=== PATIENT | female | born 1965 | race Caucasian/White ===

== ENCOUNTER 2018-11-30 16:04 | Inpatient (IN) | payer BC ==
[2018-12-12] MEDS ORDERED: oxyCODONE ER 10 MG TAB.ER PO SCH (06:00)
[2018-12-12] MEDS ORDERED: Pregabalin 25 MG Cap PO SCH (06:00)
[2018-12-12] MEDS ORDERED: Acetaminophen 325 MG Tab PO SCH (06:00)
[2018-12-12] MEDS ORDERED: Sodium Chloride 0.9% 10 ML Syringe FLUSH PRN (07:00)
[2018-12-12] MEDS ORDERED: Lactated Ringers 1,000 ML IV SCH (07:00)
[2018-12-12] MEDS ORDERED: Lidocaine 1%/Sod Bicarbonate in NS 8.4% 1 ML Syringe IDERM PRN (07:00)
[2018-12-12] MEDS ORDERED: Ropivacaine 0.5% 5 MG/ML 30 ML SDV ONE (07:54)
[2018-12-12] MEDS ORDERED: EPINEPHrine 1 MG/ML SDV ONE (07:54)
[2018-12-12] MEDS ORDERED: Scopolamine 1.5 MG Transdermal Patch TOP SCH (10:44)
--- NOTE | 2018-12-12 11:45 | PCM.PREANE ---
Preanesthetic Assessment - Anesthesia/Transfusion/Family Hx Anesthesia History: Prior Anesthesia Reaction Type of Anesthesia Reaction: Excessive Nausea/Vomiting Transfusion History: No Prior Transfusion(s) - Review of Systems General: No Symptoms Pulmonary: No Symptoms, Cough (Nonproductive. History of a viral cold about one month ago. ) Cardiovascular: No Symptoms, Edema (Lower legs when standing a lot. ), Other ( Hypertension) Gastrointestinal: No Symptoms Neurological: No Symptoms Other: Reports: None - Physical Assessment NPO Status Date: 12/11/18 NPO Status Time: 23:59 O2 Sat by Pulse Oximetry: 100 Respiratory Rate: 16 Vital Signs: Last Vital Signs Temp 36.4 C 12/12/18 10:40 Pulse 81 12/12/18 10:40 Resp 16 12/12/18 10:40 BP 138/68 12/12/18 10:40 Pulse Ox 100 12/12/18 10:40 ASA Class: 2 Mental Status: Alert & Oriented x3 Airway Class: Mallampati = 2 Dentition: Reports: Normal Dentition Thyro-Mental Finger Breadths: 3 Mouth Opening Finger Breadths: 3 ROM/Head Extension: Full Lungs: Clear to Auscultation, Normal Respiratory Effort, Decreased Breath Sounds Cardiovascular: Regular Rate, Regular Rhythm - Lab Values: Laboratory Last Values MRSA (PCR) Negative 11/30/18 16:08 - Allergies Allergies/Adverse Reactions: Allergies Allergy/AdvReac Type Severity Reaction Status Date / Time No Known Allergies Allergy Verified 12/09/18 15:10 - Anesthesia Plan Pre-Op Medication Ordered: Other (Scopalamine Patch) - Acknowledgements Anesthesia Type Planned: Spinal, Regional Block Pt an Appropriate Candidate for the Planned Anesthesia: Yes Alternatives and Risks of Anesthesia Discussed w Pt/Guardian: Yes Pt/Guardian Understands and Agrees with Anesthesia Plan: Yes PreAnesthesia Questionnaire HEENT History: Reports: None Cardiovascular History: Reports: High Cholesterol, Hypertension, Other (See Below) Other Cardiovascular History: Peripheral edema Other Respiratory History: Upper respiratory infection Gastrointestinal History: Reports: None Genitourinary History: Reports: None 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 Musculoskeletal History: Reports: Osteoarthritis Other Musculoskeletal History: Bilateral knee pain Neurological History: Reports: None Psychiatric History: Reports: None Endocrine/Metabolic History: Reports: None Hematologic History: Reports: None Immunologic History: Reports: None Oncologic (Cancer) History: Reports: None Dermatologic History: Other Dermatologic History: Acne - Past Surgical History Head Surgeries/Procedures: Reports: None HEENT Surgical History: Reports: Tonsillectomy Cardiovascular Surgical History: Reports: None Respiratory Surgical History: Reports: None GI Surgical History: Reports: Cholecystectomy Female Surgical History: Reports: Hysterectomy Endocrine Surgical History: Reports: None Neurological Surgical History: Reports: None Musculoskeletal Surgical History: Reports: Other (See Below) Other Musculoskeletal Surgeries/Procedures:: Right carpal tunnel release Dermatological Surgical History: Reports: None - SUBSTANCE USE Smoking Status *Q: Former Smoker Tobacco Use Within Last Twelve Months: No Second Hand Smoke Exposure: No Recreational Drug Use History: No - HOME MEDS Home Medications: Home Meds Calcium Carbonate/Vitamin D3 [Calcium 600 + Vit D 400 Softgl] 1 cap PO DAILY 11/05 [History] Multivitamin [Multivitamins] 1 cap PO DAILY 07/22/16 [History] Betamethasone/Clotrimazole [Lotrisone] 1 applic TOP ASDIRECTED 12/09/18 [History ] Biotin 500 mcg PO DAILY 12/09/18 [History] Cetirizine [ZyrTEC] 10 mg PO DAILY 12/09/18 [History] Fish Oil/DHA/EPA [Fish Oil 1,200 MG] 1,200 mg PO DAILY 12/09/18 [History] Fluticasone Propionate [Flonase] 1 spray NS DAILY 12/09/18 [History] Hydrochlorothiazide [Microzide] 12.5 mg PO DAILY 12/09/18 [History] Spironolactone 50 mg PO DAILY 12/09/18 [History] amLODIPine Besylate [Norvasc] 5 mg PO DAILY 12/09/18 [History] - CURRENT (IN HOUSE) MEDS Current Meds: Current Medications Acetaminophen (Tylenol) 975 mg PO ONETIME SANCHEZ Stop: 12/12/18 13:00 Last Admin: 12/12/18 11:15 Dose: 975 mg Aspirin (Ecotrin) 325 mg PO BID SANCHEZ Bisacodyl (Dulcolax) 5 mg PO DAILY PRN PRN Reason: Constipation Morphine Sulfate 8 mg/Epinephrine HCl 0.3 mg/Cefuroxime Sodium 750 mg/Ketorolac Tromethamine 30 mg/Sodium Chloride 27.9 ml 0 mg .XX ONETIME ONE Stop: 12/12/18 13:01 Cyclobenzaprine HCl (Flexeril) 10 mg PO TID PRN PRN Reason: Spasms Docusate Sodium (Colace) 100 mg PO BID [facility] Famotidine (Pepcid) 20 mg PO Q12H [facility] Lactated Ringer's (Ringers, Lactated) 1,000 mls @ 125 mls/hr IV ASDIRECTED [facility] Stop: 12/12/18 23:00 Last Admin: 12/12/18 11:25 Dose: 125 mls/hr Cefazolin Sodium/Dextrose 2 gm (/ Premix) 50 mls @ 100 mls/hr IV Q8H [facility] Stop: 12/12/18 23:29 Ketorolac Tromethamine (Toradol) 15 mg IVPUSH Q6H PRN PRN Reason: Pain Lidocaine/Sodium Bicarbonate (Buffered Lidocaine 1% In Ns 8.4%) 0.25 ml IDERM ONETIME PRN PRN Reason: Prior to IV Start Stop: 12/12/18 18:00 Last Admin: 12/12/18 11:25 Dose: 0.25 ml Magnesium Hydroxide (Milk Of Magnesia) 30 ml PO BID PRN PRN Reason: Constipation Miscellaneous Information (Remove Patch) 0 ea TRDERM ONETIME ONE Stop: 12/15/18 13:01 Morphine Sulfate (Morphine) 2 mg IVPUSH Q2H PRN PRN Reason: Breakthrough Pain Naloxone HCl (Narcan) 0.1 mg IVPUSH Q5M PRN PRN Reason: Oversedation Ondansetron HCl (Zofran) 4 mg IVPUSH Q6H PRN PRN Reason: Nausea/Vomiting Oxycodone HCl (Oxycontin) 10 mg PO ONETIME [facility] Stop: 12/12/18 13:00 Last Admin: 12/12/18 11:15 Dose: 10 mg Oxycodone/Acetaminophen (Percocet 325-5 Mg) 1 - 2 tab PO Q4H PRN PRN Reason: Pain Pregabalin (Lyrica) 50 mg PO ONETIME [facility] Stop: 12/12/18 13:00 Last Admin: 12/12/18 11:15 Dose: 50 mg Scopolamine (Transderm-Scop) 1.5 mg TOP ONETIME [facility] Stop: 12/12/18 13:00 Last Admin: 12/12/18 11:05 Dose: 1.5 mg Senna (Senna) 8.6 mg PO BID PRN PRN Reason: Constipation Sodium Chloride (Saline Flush) 10 ml FLUSH ASDIRECTED PRN PRN Reason: Keep Vein Open Stop: 12/12/18 18:00 Discontinued Medications Epinephrine HCl (Adrenalin) Confirm Administered Dose 1 mg .ROUTE .STK-MED ONE Stop: 12/12/18 07:55 Ropivacaine (Naropin 0.5%) Confirm Administered Dose 30 ml .ROUTE .STK-MED ONE Stop: 12/12/18 07:55
[2018-12-12] MEDS ORDERED: Morphine 2 MG/ML Syringe IVPUSH PRN (12:00)
[2018-12-12] MEDS ORDERED: Magnesium Hydroxide 400 MG/5 ML Susp 30 ML Cup PO PRN (12:00)
[2018-12-12] MEDS ORDERED: Ondansetron 4 MG/2 ML SDV IVPUSH PRN ×2 (12:00→13:36)
[2018-12-12] MEDS ORDERED: Bisacodyl 5 MG Tab PO PRN (12:00)
[2018-12-12] MEDS ORDERED: Cyclobenzaprine 10 MG Tab PO PRN (12:00)
[2018-12-12] MEDS ORDERED: Naloxone 0.4 MG/ML SDV IVPUSH PRN (12:00)
[2018-12-12] MEDS ORDERED: Sennosides 8.6 MG Tab PO PRN (12:00)
[2018-12-12] MEDS ORDERED: fentaNYL 100 MCG/2 ML SDV ONE (12:11)
[2018-12-12] MEDS ORDERED: Propofol 200 MG/20 ML SDV ONE ×3 (12:13→14:23)
[2018-12-12] MEDS ORDERED: Ondansetron 4 MG/2 ML SDV ONE (12:13)
[2018-12-12] MEDS ORDERED: Midazolam 1 MG/ML 2 ML SDV ONE (12:52)
[2018-12-12] MEDS ORDERED: Bupivacaine 0.75% 30 ML SDV ONE (12:56)
[2018-12-12] MEDS ORDERED: ceFAZolin 1 GM Vial ONE (13:16)
[2018-12-12] MEDS ORDERED: fentaNYL 100 MCG/2 ML SDV IVPUSH PRN (13:36)
[2018-12-12] MEDS ORDERED: diphenhydrAMINE 50 MG/ML SDV IVPUSH PRN (13:36)
[2018-12-12] MEDS: Iodine/Sodium Iodide 2% Tincture 30 ML Bottle ONE ×2 (14:00→14:23)
[2018-12-12] MEDS: ceFAZolin 1 GM Vial ONE ×2 (14:00→14:26)
[2018-12-12] MEDS: Bupivacaine 0.25% 30 ML SDV ONE ×4 (14:01→15:00)
[2018-12-12] MEDS: Morphine 8 MG, EPINEPHrine 0.3 MG, Cefuroxime 750 MG, Ketorolac 30 MG, Sodium Chloride ... ONE ×15 (14:02→21:21)
[2018-12-12] MEDS: Vancomycin 1 GM SDV ONE ×2 (14:02→14:32)
[2018-12-12] MEDS: Triamcinolone Acetonide 40 MG/ML 1 ML MDV ONE ×2 (14:05→15:00)
[2018-12-12] MEDS ORDERED: Ketorolac 30 MG/ML SDV ONE (14:07)
[2018-12-12] MEDS ORDERED: Ketamine 500 mg/10 ML MDV ONE (14:11)
[2018-12-12] MEDS ORDERED: Dexamethasone 4 MG/ML 5 ML MDV ONE (14:20)
[2018-12-12] MEDS ORDERED: Albuterol 6.7 GM Inhaler INH ONE (14:26)
[2018-12-12] MEDS ORDERED: Betamethasone Dipropionate/Clotrimazole 0.05-1% Crm 15 GM Tube TOP SCH (15:15)
--- NOTE | 2018-12-12 15:42 | PCM.POSTAN ---
POST ANESTHESIA ASSESSMENT - MENTAL STATUS Mental Status: Alert, Oriented - VITAL SIGNS Pulse Rate: 95 SaO2: 99 Resp Rate: 20 Blood Pressure: 114/57 Temperature: 36.6 C - RESPIRATORY Respiratory Status: Respiratory Rate WNL, Airway Patent, O2 Saturation Stable, Supplemental Oxygen - CARDIOVASCULAR CV Status: Pulse Rate WNL, Blood Pressure Stable - GASTROINTESTINAL GI Status: No Symptoms - PAIN Pain Score: 0 - POST OP HYDRATION Hydration Status: Adequate & Stable
--- NOTE | 2018-12-12 15:53 | PCM.SN ---
- Free Text/Narrative Note: Left selective femoral nerve block at the adductor canal for post-procedure pain control Time Out: 1520 Start: 1524 End: 1530 Chart reviewed. Consent signed. Questions answered. Appropriate monitors applied. Time out performed. Left mid-shaft femur evaluated with ultrasound. Scanning medially femur, I was able to identify the femoral artery in the adductor canal. The saphenous nerve was lateral to the artery. The skin was prepped lateral to the ultrasound probe with chlorahexadine. The 21ga 4 insulated block needle was inserted under direct ultrasound guidance into the adductor canal. 20mL of 0.5% ropivacaine with 1:200,000 epinephrine was injected cirmcumferentially about the nerve with intermittent negative aspiration every 5mL. Patient tolerated the procedure well. See pictures on progress note and vital signs on nurses notes. Block completed postoperatively. Ashly Story ENTRY LEVEL ASSISTANT MANAGER
--- NOTE | 2018-12-12 16:30 | PCM.CONS ---
H&P History of Present Illness - General Date of Service: 12/12/18 Admit Problem/Dx: Admission Diagnosis/Problem Admission Diagnosis/Problem Osteoarthritis of knee Source of Information: Patient, Old Records, Provider, RN, RN Notes Reviewed History Limitations: Reports: No Limitations - History of Present Illness Initial Comments - Free Text/Narative: Luiza Ventura is a 53 yo female patient of Dr. Medrano who is post-operative day 0 of left TKA with right knee cortisone injection. Hospital medicine was consulted for post-operative medical care. At this time she is resting comfortably in bed. Pain is controlled. She denies any chest pain, shortness of breath, palpitations, nausea, or vomiting. She carries a history of: HTN, peripheral edema, Osteoarthritis and acne. She was noted to cough all throughout surgery despite steroid and nebulizer. She is a former smoker. She is a full code. Her primary care provider is Savannah Mcguire NP. Bilateral Knee Pain Score (Numeric/FACES): 5 - Related Data Allergies/Adverse Reactions: Allergies Allergy/AdvReac Type Severity Reaction Status Date / Time No Known Allergies Allergy Verified 12/12/18 16:30 Home Medications: Home Meds Calcium Carbonate/Vitamin D3 [Calcium 600 + Vit D 400 Softgl] 1 cap PO DAILY 11/05 [History] Multivitamin [Multivitamins] 1 cap PO DAILY 07/22/16 [History] Betamethasone/Clotrimazole [Lotrisone] 1 applic TOP ASDIRECTED 12/09/18 [History ] Biotin 500 mcg PO DAILY 12/09/18 [History] Cetirizine [ZyrTEC] 10 mg PO DAILY 12/09/18 [History] Fluticasone Propionate [Flonase] 1 spray NS DAILY 12/09/18 [History] Hydrochlorothiazide [Microzide] 12.5 mg PO DAILY 12/09/18 [History] Spironolactone 50 mg PO DAILY 12/09/18 [History] amLODIPine Besylate [Norvasc] 5 mg PO DAILY 12/09/18 [History] Acetaminophen/oxyCODONE [Percocet 325-5 MG] 1 - 2 tab PO Q6H PRN #60 tablet [Rx] Aspirin [Ecotrin] 325 mg PO BID #84 tab.ec 12/12/18 [Rx] Bisacodyl [Dulcolax] 5 mg PO DAILY PRN tablet 12/12/18 [Rx] Cyclobenzaprine [Flexeril] 10 mg PO TID PRN #40 tablet 12/12/18 [Rx] Docusate Sodium [Colace] 100 mg PO BID cap 12/12/18 [Rx] Famotidine [Pepcid] 20 mg PO Q12H tablet 12/12/18 [Rx] Magnesium Hydroxide [Milk of Magnesia] 30 ml PO BID PRN cup 12/12/18 [Rx] Ondansetron [Zofran ODT] 4 mg PO Q6H PRN #20 tab.dis 12/12/18 [Rx] Sennosides [Senna] 8.6 mg PO BID PRN tablet 12/12/18 [Rx] Past Medical History HEENT History: Reports: None Cardiovascular History: Reports: High Cholesterol, Hypertension, Other (See Below) Other Cardiovascular History: Peripheral edema Other Respiratory History: Upper respiratory infection Gastrointestinal History: Reports: None Genitourinary History: Reports: 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 Musculoskeletal History: Reports: Osteoarthritis Other Musculoskeletal History: Bilateral knee pain Neurological History: Reports: None Psychiatric History: Reports: None Endocrine/Metabolic History: Reports: None Hematologic History: Reports: None Immunologic History: Reports: None Oncologic (Cancer) History: Reports: None Dermatologic History: Other Dermatologic History: Acne - Past Surgical History Head Surgeries/Procedures: Reports: None HEENT Surgical History: Reports: Tonsillectomy Cardiovascular Surgical History: Reports: None Respiratory Surgical History: Reports: None GI Surgical History: Reports: Cholecystectomy Female Surgical History: Reports: Hysterectomy Endocrine Surgical History: Reports: None Neurological Surgical History: Reports: None Musculoskeletal Surgical History: Reports: Other (See Below) Other Musculoskeletal Surgeries/Procedures:: Right carpal tunnel release Dermatological Surgical History: Reports: None Social & Family History - Tobacco Use Smoking Status *Q: Former Smoker Years of Tobacco use: 8 Packs/Tins Daily: 0.5 Used Tobacco, but Quit: Yes Month/Year Tobacco Last Used: 1993 Second Hand Smoke Exposure: No - Caffeine Use Caffeine Use: Reports: Coffee, Soda - Recreational Drug Use Recreational Drug Use: No Drug Use in Last 12 Months: No H&P Review of Systems - Review of Systems: Review Of Systems: See Below General: Reports: No Symptoms. Denies: Fever, Chills, Malaise, Fatigue HEENT: Reports: No Symptoms. Denies: Headaches, Sore Throat Pulmonary: Reports: No Symptoms. Denies: Shortness of Breath, Wheezing, Pleuritic Chest Pain, Cough, Sputum Cardiovascular: Reports: No Symptoms. Denies: Chest Pain, Palpitations, Dyspnea on Exertion, Edema Gastrointestinal: Reports: No Symptoms. Denies: Abdominal Pain, Constipation, Diarrhea, Nausea, Vomiting Genitourinary: Reports: No Symptoms. Denies: Pain Musculoskeletal: Reports: Leg Pain Skin: Reports: No Symptoms. Denies: Cyanosis Psychiatric: Reports: No Symptoms. Denies: Confusion Neurological: Reports: No Symptoms Hematologic/Lymphatic: Reports: No Symptoms Immunologic: Reports: No Symptoms Exam - Exam Exam: See Below - Vital Signs Vital Signs: Last Vital Signs Temp 97.6 F 12/12/18 16:00 Pulse 95 12/12/18 16:00 Resp 19 12/12/18 16:00 BP 123/57 L 12/12/18 16:00 Pulse Ox 94 L 12/12/18 16:00 Weight: 230 lb - Exam Quality Assessment: DVT Prophylaxis General: Alert, Oriented, Cooperative. No: Mild Distress HEENT: Conjunctiva Clear, EACs Clear, EOMI, Hearing Intact, Mucosa Moist & [place] , Posterior Pharynx Clear, PERRLA Neck: Supple, Trachea Midline Lungs: Clear to Auscultation, Normal Respiratory Effort Cardiovascular: Regular Rate, Regular Rhythm GI/Abdominal Exam: Normal Bowel Sounds, Soft, Non-Tender, No Organomegaly, No Distention (Female) Exam: Deferred Rectal (Female) Exam: Deferred Back Exam: Normal Inspection, Full Range of Motion Extremities: Non-Tender, No Pedal Edema, Normal Capillary Refill, Leg Pain, Limited Range of Motion, Other (Bandage in place on left leg. Bandage is dry and intact. Cooling pack in place. ) Peripheral Pulses: 2+: Radial (L), Radial (R), Dorsalis Pedis (L), Dorsalis Pedis (R) Skin: Warm, Dry, Intact Neurological: Cranial Nerves Intact (grossly ) Neuro Extensive - Mental Status: Alert, Oriented x3, Normal Mood/Affect, Normal Cognition Consult PN Assessment/Plan POD#: 0 Procedures: Procedures ARTHROSCOP ROTATOR CUFF REPR (07/23/16) ASSAY OF PREALBUMIN (07/15/18) ASSAY THYROID STIM HORMONE (08/03/18) C-REACTIVE PROTEIN (08/03/18) COMPLETE CBC W/AUTO DIFF WBC (08/03/18) COMPREHEN METABOLIC PANEL (07/15/18) CULTURE SCREEN ONLY (08/03/18) EXTREMITY STUDY (12/26/14) MR-STAPH DNA AMP PROBE (07/23/16) MRI JOINT UPR EXTREM W/O DYE (06/08/16) PROTHROMBIN TIME (07/15/18) ROUTINE VENIPUNCTURE (08/03/18) SHOULDER ARTHROSCOPY/SURGERY (07/23/16) STREP A AG IA (08/03/18) X-RAY EXAM CHEST 2 VIEWS (07/15/18) (1) S/P total knee arthroplasty SNOMED Code(s): 3321710512337, 370269471, 6129953571204 Code(s): Z96.659 - PRESENCE OF UNSPECIFIED ARTIFICIAL KNEE JOINT Priority: High Current Visit: Yes Qualifiers: Laterality: left Qualified Code(s): Z96.652 - Presence of left artificial knee joint (2) HTN (hypertension) SNOMED Code(s): 11308470 Code(s): I10 - ESSENTIAL (PRIMARY) HYPERTENSION Priority: Medium Current Visit: No Qualifiers: Hypertension type: unspecified Qualified Code(s): I10 - Essential (primary ) hypertension (3) HLD (hyperlipidemia) SNOMED Code(s): 27180530 Code(s): E78.5 - HYPERLIPIDEMIA, UNSPECIFIED Priority: Medium Current Visit: No Qualifiers: Hyperlipidemia type: unspecified Qualified Code(s): E78.5 - Hyperlipidemia , unspecified (4) Peripheral edema SNOMED Code(s): 079842065 Code(s): R60.9 - EDEMA, UNSPECIFIED Priority: Low Current Visit: No (5) Osteoarthritis SNOMED Code(s): 883249442 Code(s): M19.90 - UNSPECIFIED OSTEOARTHRITIS, UNSPECIFIED SITE Priority: High Current Visit: Yes Qualifiers: Osteoarthritis location: knee Osteoarthritis type: primary Laterality: bilateral Qualified Code(s): M17.0 - Bilateral primary osteoarthritis of knee Problem List Initiated/Reviewed/Updated: Yes Plan: I/P: Acute: S/P left total knee arthroplasty - post-operative day 0 -DVT prophylaxis and pain management per primary care team -PT/OT -IS/RT -Monitor oxygen saturation -Titrate oxygen as needed -Vital signs stable -Monitor labs -Pre-operative Hgb was 13.9 -Pre-operative GFR was >60 -Per-operative WBC was 10.13 Osteoarthritis of Bilateral knees -Pain management per primary care team S/P right knee cortisone injection -Management per primary team Chronic: HTN HLD Acne Peripheral edema Plan: CM for discharge planning GI prophylaxis Home medications as indicated Other orders as listed above Routine AM labs She is a full code. Her PCP is Savannah Obrien NP Thank you for allowing us to participate in the care of this patient!! Requesting Provider: Dr. Medrano Date Consult Requested: 12/12/18 Reason for Consult: Post-operarive medical managment Patient History Reviewed: Yes Admission H&P Reviewed: Yes Time Spent (in minutes): 40
--- NOTE | 2018-12-12 16:33 | CR ---
Left knee: AP and lateral views left knee were obtained. Comparison: Left knee partially seen on the left tibia and fibula study of 04/05/10. Knee prosthesis is seen. Components are aligned. Underlying bony structures are intact. Soft tissue air is noted from the surgical procedure. Impression: 1. Satisfactory postop radiographic appearance of recently placed left knee prosthesis. Diagnostic code #2
[2018-12-12] MEDS: Ketorolac 15 MG/ML SDV IVPUSH PRN (20:50)
[2018-12-12] MEDS: Famotidine 20 MG Tab PO SCH (20:51)
[2018-12-12] MEDS: Docusate Sodium 100 MG Cap PO SCH (20:51)
[2018-12-12] MEDS: ceFAZolin 2 GM in Premix Bag 1 BAG IV SCH (20:52)
[2018-12-12] MEDS: Acetaminophen/oxyCODONE 325-5 MG Tab PO PRN (21:35)
[2018-12-13] MEDS: ceFAZolin 2 GM in Premix Bag 1 BAG IV SCH ×2 (04:53→11:41)
[2018-12-13] MEDS: Acetaminophen/oxyCODONE 325-5 MG Tab PO PRN ×3 (04:54→14:57)
--- NOTE | 2018-12-13 06:38 | PCM.CONSN ---
- General Info Date of Service: 12/13/18 Admission Dx/Problem (Free Text): Admission Diagnosis/Problem Admission Diagnosis/Problem Osteoarthritis of knee Functional Status: Reports: Pain Controlled, Tolerating Diet, Ambulating, Urinating, Incentive Spirometry. Denies: New Symptoms - Review of Systems General: Reports: No Symptoms. Denies: Fever, Weakness, Fatigue, Chills HEENT: Reports: No Symptoms. Denies: Headaches, Sore Throat Pulmonary: Reports: No Symptoms. Denies: Shortness of Breath, Cough, Sputum, Wheezing Cardiovascular: Reports: No Symptoms. Denies: Chest Pain, Palpitations, Dyspnea on Exertion Gastrointestinal: Reports: No Symptoms. Denies: Abdominal Pain, Constipation, Diarrhea, Nausea, Vomiting Genitourinary: Reports: No Symptoms. Denies: Pain Musculoskeletal: Reports: Leg Pain Skin: Reports: No Symptoms. Denies: Cyanosis Neurological: Reports: No Symptoms. Denies: Confusion Psychiatric: Reports: No Symptoms - Patient Data Vitals - Most Recent: Last Vital Signs Temp 97.5 F 12/13/18 04:53 Pulse 76 12/13/18 04:53 Resp 18 12/13/18 04:53 BP 109/59 L 12/13/18 04:53 Pulse Ox 96 12/13/18 04:53 Weight - Most Recent: 230 lb I&O - Last 24 Hours: Intake & Output 12/12/18 12/12/18 12/13/18 14:59 22:59 06:59 Intake Total 160 400 Output Total 550 Balance 160 -150 Lab Results Last 24 Hours: Laboratory Results - last 24 hr 12/13/18 Range/Units 05:10 WBC 21.99 H (3.98-10.04) K/mm3 RBC 4.33 (3.98-5.22) M/mm3 Hgb 12.5 (11.2-15.7) gm/L Hct 37.7 (34.1-44.9) % MCV 87.1 (79.4-94.8) fl MCH 28.9 (25.6-32.2) pg MCHC 33.2 (32.2-35.5) g/dl RDW Std Deviation 41.0 (36.4-46.3) fL Plt Count 309 (182-369) K/mm3 MPV 11.1 (9.4-12.3) fl Med Orders - Current: Current Medications Amlodipine Besylate (Norvasc) 5 mg PO DAILY [facility] Aspirin (Ecotrin) 325 mg PO BID [facility] Betamethasone/Clotrimazole (Lotrisone) 0 gm TOP ASDIRECTED [facility] Bisacodyl (Dulcolax) 5 mg PO DAILY PRN PRN Reason: Constipation Calcium Carbonate (Calcium Carbonate/Vitamin D 600 Mg-200 Unit) 1 tab PO DAILY [facility] Cyclobenzaprine HCl (Flexeril) 10 mg PO TID PRN PRN Reason: Spasms Docusate Sodium (Colace) 100 mg PO BID [facility] Last Admin: 12/12/18 20:51 Dose: 100 mg Famotidine (Pepcid) 20 mg PO Q12H [facility] Last Admin: 12/12/18 20:51 Dose: 20 mg Fluticasone Propionate (Flonase) 0 gm DENA DAILY [facility] Hydrochlorothiazide (Hydrochlorothiazide) 12.5 mg PO DAILY [facility] Cefazolin Sodium/Dextrose 2 gm (/ Premix) 50 mls @ 100 mls/hr IV Q8H [facility] Stop: 12/13/18 12:29 Last Admin: 12/13/18 04:53 Dose: 100 mls/hr Ketorolac Tromethamine (Toradol) 15 mg IVPUSH Q6H PRN PRN Reason: Pain Last Admin: 12/12/18 20:50 Dose: 15 mg Loratadine (Claritin) 10 mg PO DAILY [facility] Magnesium Hydroxide (Milk Of Magnesia) 30 ml PO BID PRN PRN Reason: Constipation Miscellaneous Information (Remove Patch) 0 ea TRDERM ONETIME ONE Stop: 12/15/18 13:01 Morphine Sulfate (Morphine) 2 mg IVPUSH Q2H PRN PRN Reason: Breakthrough Pain Multivitamins (Thera) 1 each PO DAILY [facility] Naloxone HCl (Narcan) 0.1 mg IVPUSH Q5M PRN PRN Reason: Oversedation Non-Formulary Medication (Biotin [Biotin]) 500 mcg PO DAILY [facility] Ondansetron HCl (Zofran) 4 mg IVPUSH Q6H PRN PRN Reason: Nausea/Vomiting Oxycodone/Acetaminophen (Percocet 325-5 Mg) 1 - 2 tab PO Q4H PRN PRN Reason: Pain Last Admin: 12/13/18 04:54 Dose: 1 tab Senna (Senna) 8.6 mg PO BID PRN PRN Reason: Constipation Spironolactone (Aldactone) 50 mg PO DAILY [facility] Discontinued Medications Acetaminophen (Tylenol) 975 mg PO ONETIME [facility] Stop: 12/12/18 13:00 Last Admin: 12/12/18 11:15 Dose: 975 mg Albuterol (Proventil Hfa) Confirm Administered Dose 6.7 gm INH .STK-MED ONE Stop: 12/12/18 14:27 Bupivacaine HCl (Marcaine 0.25%) Confirm Administered Dose 30 ml .ROUTE .STK- MED ONE Stop: 12/12/18 12:03 Last Admin: 12/12/18 14:28 Dose: 30 ml Bupivacaine HCl (Marcaine 0.25%) Confirm Administered Dose 30 ml .ROUTE .STK- MED ONE Stop: 12/12/18 12:53 Last Admin: 12/12/18 15:00 Dose: 4 ml Bupivacaine HCl (Sensorcaine-Mpf 0.75%) Confirm Administered Dose 30 ml .ROUTE .STK-MED ONE Stop: 12/12/18 12:57 Cefazolin Sodium (Ancef) Confirm Administered Dose 2 gm .ROUTE .STK-MED ONE Stop: 12/12/18 12:03 Last Admin: 12/12/18 14:26 Dose: 2 gm Cefazolin Sodium (Ancef) Confirm Administered Dose 2 gm .ROUTE .STK-MED ONE Stop: 12/12/18 13:17 Morphine Sulfate 8 mg/Epinephrine HCl 0.3 mg/Cefuroxime Sodium 750 mg/Ketorolac Tromethamine 30 mg/Sodium Chloride 27.9 ml 0 mg .XX ONETIME ONE Stop: 12/12/18 13:01 Last Admin: 12/12/18 21:21 Dose: Not Given Dexamethasone (Dexamethasone) Confirm Administered Dose 20 mg .ROUTE .STK-MED ONE Stop: 12/12/18 14:21 Diphenhydramine HCl (Benadryl) 25 mg IVPUSH Q6H PRN PRN Reason: Pruritis Stop: 12/12/18 23:00 Epinephrine HCl (Adrenalin) Confirm Administered Dose 1 mg .ROUTE .STK-MED ONE Stop: 12/12/18 07:55 Fentanyl (Sublimaze) Confirm Administered Dose 100 mcg .ROUTE .STK-MED ONE Stop: 12/12/18 12:12 Fentanyl (Sublimaze) 50 mcg IVPUSH Q5M PRN PRN Reason: Pain Stop: 12/12/18 23:00 Glycopyrrolate () Confirm Administered Dose 1 mg .ROUTE .STK-MED ONE Stop: 12/12/18 14:24 Lactated Ringer's (Ringers, Lactated) 1,000 mls @ 125 mls/hr IV ASDIRECTED [facility] Stop: 12/12/18 23:00 Last Admin: 12/12/18 11:25 Dose: 125 mls/hr Lidocaine HCl (Xylocaine-Mpf 1%) Confirm Administered Dose 5 mls @ as directed .ROUTE .STK-MED ONE Stop: 12/12/18 12:58 Iodine (Iodine 2% Mild Tincture) Confirm Administered Dose 30 ml .ROUTE .STK- MED ONE Stop: 12/12/18 12:03 Last Admin: 12/12/18 14:23 Dose: 18 ml Ketamine HCl (Ketalar) Confirm Administered Dose 500 mg .ROUTE .STK-MED ONE Stop: 12/12/18 14:12 Ketorolac Tromethamine (Toradol) Confirm Administered Dose 30 mg .ROUTE .STK- MED ONE Stop: 12/12/18 14:08 Lidocaine/Sodium Bicarbonate (Buffered Lidocaine 1% In Ns 8.4%) 0.25 ml IDERM ONETIME PRN PRN Reason: Prior to IV Start Stop: 12/12/18 18:00 Last Admin: 12/12/18 11:25 Dose: 0.25 ml Midazolam HCl (Versed 1 Mg/Ml) Confirm Administered Dose 2 mg .ROUTE .STK-MED ONE Stop: 12/12/18 12:53 Ondansetron HCl (Zofran) Confirm Administered Dose 4 mg .ROUTE .STK-MED ONE Stop: 12/12/18 12:14 Ondansetron HCl (Zofran) 4 mg IVPUSH ONETIME PRN PRN Reason: Nausea/Vomiting Stop: 12/12/18 23:00 Oxycodone HCl (Oxycontin) 10 mg PO ONETIME [facility] Stop: 12/12/18 13:00 Last Admin: 12/12/18 11:15 Dose: 10 mg Pregabalin (Lyrica) 50 mg PO ONETIME [facility] Stop: 12/12/18 13:00 Last Admin: 12/12/18 11:15 Dose: 50 mg Propofol (Diprivan 20 Ml) Confirm Administered Dose 200 mg .ROUTE .STK-MED ONE Stop: 12/12/18 12:14 Propofol (Diprivan 20 Ml) Confirm Administered Dose 400 mg .ROUTE .STK-MED ONE Stop: 12/12/18 12:54 Propofol (Diprivan 20 Ml) Confirm Administered Dose 200 mg .ROUTE .STK-MED ONE Stop: 12/12/18 14:24 Ropivacaine (Naropin 0.5%) Confirm Administered Dose 30 ml .ROUTE .STK-MED ONE Stop: 12/12/18 07:55 Scopolamine (Transderm-Scop) 1.5 mg TOP ONETIME [facility] Stop: 12/12/18 13:00 Last Admin: 12/12/18 11:05 Dose: 1.5 mg Sodium Chloride (Saline Flush) 10 ml FLUSH ASDIRECTED PRN PRN Reason: Keep Vein Open Stop: 12/12/18 18:00 Tranexamic Acid (Cyklokapron) Confirm Administered Dose 1,000 mg .ROUTE .STK- MED ONE Stop: 12/12/18 12:03 Last Admin: 12/12/18 14:40 Dose: 1,000 mg Triamcinolone Acetonide (Kenalog-40) Confirm Administered Dose 80 mg .ROUTE .STK -MED ONE Stop: 12/12/18 12:53 Last Admin: 12/12/18 15:00 Dose: 80 mg Vancomycin HCl (Vancomycin) Confirm Administered Dose 1 gm .ROUTE .STK-MED ONE Stop: 12/12/18 12:03 Last Admin: 12/12/18 14:32 Dose: 1 gm - Exam Quality Assessment: DVT Prophylaxis General: Alert, Oriented, Cooperative, No Acute Distress HEENT: Pupils Equal, Pupils Reactive, EOMI, Mucous Membr. Moist/[place] Neck: Supple, Trachea Midline, No JVD Lungs: Clear to Auscultation, Normal Respiratory Effort Cardiovascular: Regular Rate, Regular Rhythm GI/Abdominal Exam: Normal Bowel Sounds, Soft, Non-Tender, No Organomegaly, No Distention (Female) Exam: Deferred Back Exam: Normal Inspection, Full Range of Motion Extremities: No Pedal Edema, Normal Capillary Refill, Leg Pain, Limited Range of Motion, Other (Bandage in place on right leg. Cooling pack in place. ) Peripheral Pulses: 2+: Radial (L), Radial (R), Dorsalis Pedis (L), Dorsalis Pedis (R) Skin: Warm, Dry, Intact Neurological: No New Focal Deficit Psy/Mental Status: Alert, Normal Affect, Normal Mood Consult PN Assessment/Plan POD#: 1 Procedures: Procedures ARTHROSCOP ROTATOR CUFF REPR (07/23/16) ASSAY OF PREALBUMIN (07/15/18) ASSAY THYROID STIM HORMONE (08/03/18) C-REACTIVE PROTEIN (08/03/18) COMPLETE CBC W/AUTO DIFF WBC (08/03/18) COMPREHEN METABOLIC PANEL (07/15/18) CULTURE SCREEN ONLY (08/03/18) EXTREMITY STUDY (12/26/14) MR-STAPH DNA AMP PROBE (07/23/16) MRI JOINT UPR EXTREM W/O DYE (06/08/16) PROTHROMBIN TIME (07/15/18) ROUTINE VENIPUNCTURE (08/03/18) SHOULDER ARTHROSCOPY/SURGERY (07/23/16) STREP A AG IA (08/03/18) X-RAY EXAM CHEST 2 VIEWS (07/15/18) (1) S/P total knee arthroplasty SNOMED Code(s): 7158750112664, 070550875, 3480706973197 Code(s): Z96.659 - PRESENCE OF UNSPECIFIED ARTIFICIAL KNEE JOINT Priority: High Current Visit: Yes Qualifiers: Laterality: left Qualified Code(s): Z96.652 - Presence of left artificial knee joint (2) HTN (hypertension) SNOMED Code(s): 87193070 Code(s): I10 - ESSENTIAL (PRIMARY) HYPERTENSION Priority: Medium Current Visit: No Qualifiers: Hypertension type: unspecified Qualified Code(s): I10 - Essential (primary ) hypertension (3) HLD (hyperlipidemia) SNOMED Code(s): 39106300 Code(s): E78.5 - HYPERLIPIDEMIA, UNSPECIFIED Priority: Medium Current Visit: No Qualifiers: Hyperlipidemia type: unspecified Qualified Code(s): E78.5 - Hyperlipidemia , unspecified (4) Peripheral edema SNOMED Code(s): 527289247 Code(s): R60.9 - EDEMA, UNSPECIFIED Priority: Low Current Visit: No (5) Osteoarthritis SNOMED Code(s): 452665735 Code(s): M19.90 - UNSPECIFIED OSTEOARTHRITIS, UNSPECIFIED SITE Priority: High Current Visit: Yes Qualifiers: Osteoarthritis location: knee Osteoarthritis type: primary Laterality: bilateral Qualified Code(s): M17.0 - Bilateral primary osteoarthritis of knee Problem List Initiated/Reviewed/Updated: Yes Plan: I/P: Acute: S/P left total knee arthroplasty - post-operative day 1 -DVT prophylaxis and pain management per primary care team -PT/OT -IS/RT -Monitor oxygen saturation -Titrate oxygen as needed -Vital signs stable -Monitor labs -Pre-operative Hgb was 14.7; Now 12.5 -Pre-operative Creatinine0.7; Now 1.2-->1.1 -Pre-operative GFR was 93; Now 52-->52 -Per-operative WBC was 9.2; Now 21.99 Osteoarthritis of Bilateral knees -Pain management per primary care team S/P right knee cortisone injection -Management per primary team Leukocytosis -WBC 21.99 (was 10 to 11 prior) -Received steroid injection into right knee as well as multiple inhalation steroids 2/2 coughing during surgery -2 view CXR shows nothing acute -UA negative Acute kidney injury -Likely 2/2 inadequate fluid intake - reports minimal output and input -GFR >60 pre-operative; Now 52-->52 -Creatinine pre-operative ;Now 1.2-->1.1 -BUN preoperative ; Now 17-->17 -IV fluids as ordered Chronic: HTN HLD Acne Peripheral edema Plan: CM for discharge planning GI prophylaxis Home medications as indicated Other orders as listed above Routine AM labs She is a full code. Her PCP is Savannah Mcguire NP Overall from a hospitalist standpoint Luiza is doing pretty well. She has been up ambulatory in working with therapies. She has urinated and is off of oxygen. Vital signs remained stable. Her GFR did decrease from preoperatively quite a bit and her creatinine hal to 1.2. She did receive 1 L of fluid in bolus and then was given IV fluids at a rate of 100 mL an hour thereafter for several hours. She did report she felt quite dry and had not urinated very much. She reports intake yesterday and prior to surgery was very minimal. Did instruct to push fluids. Repeat BMP showed slightly improved creatinine however GFR remain the same. She does have a follow-up appointment scheduled with her PCP. Advised her of signs to watch for's showing renal failure such as brown or tea-colored urine, difficulty urinating, no urination, etc. White count was quite high today at 22. UA and chest x-ray were obtained with no signs of infection. She denies any infectious symptoms. It was noted she coughed frequently throughout the surgery and was given significant amounts of inhalation steroids. She also received a knee steroid injection. This may be why her white count was so elevated. Advised her and her of signs of infection and to seek medical care immediately should symptoms develop. Encouraged continued IS usage. Otherwise she has no concerns. No nursing concerns. She will be cleared for discharge pending primary team and PT/OT approval. Thank you for allowing us to participate in the care of this patient!!
[2018-12-13] MEDS: Docusate Sodium 100 MG Cap PO SCH (08:04)
[2018-12-13] MEDS: Famotidine 20 MG Tab PO SCH (08:04)
[2018-12-13] MEDS: Ketorolac 15 MG/ML SDV IVPUSH PRN (08:05)
[2018-12-13] MEDS ORDERED: Sodium Chloride 0.9% 1,000 ML IV SCH ×2 (08:15→09:45)
--- NOTE | 2018-12-13 08:39 | PCM48HPAN ---
Post Anesthesia Note - EVALUATION WITHIN 48HRS OF ANESTHETIC Vital Signs in Normal Range: Yes Patient Participated in Evaluation: Yes Respiratory Function Stable: Yes Airway Patent: Yes Cardiovascular Function Stable: Yes Hydration Status Stable: Yes Pain Control Satisfactory: Yes Nausea and Vomiting Control Satisfactory: Yes Mental Status Recovered: Yes
[2018-12-13] MEDS ORDERED: Calcium Carbonate/Vitamin D3 600 MG-200 Units Tab PO SCH (09:00)
[2018-12-13] MEDS ORDERED: Spironolactone 25 MG Tab PO SCH (09:00)
[2018-12-13] MEDS ORDERED: Fluticasone Propionate Nasal Spray 16 GM Bottle NAS SCH (09:00)
[2018-12-13] MEDS ORDERED: Hydrochlorothiazide 12.5 MG Cap PO SCH (09:00)
[2018-12-13] MEDS ORDERED: Aspirin 325 MG Tab.EC PO SCH (09:00)
[2018-12-13] MEDS ORDERED: Multivitamins,Therapeutic Tab PO SCH (09:00)
[2018-12-13] MEDS ORDERED: amLODIPine 5 MG Tab PO SCH (09:00)
[2018-12-13] MEDS ORDERED: Loratadine 10 MG Tab PO SCH (09:00)
[2018-12-13] MEDS ORDERED: BIOTIN 500 MCG PO SCH (09:00)
--- NOTE | 2018-12-13 09:01 | CR ---
Chest: Two views of the chest were obtained. Comparison: Prior chest x-ray of 07/15/18. Heart size and mediastinum are within normal limits. Lungs are clear. Bony structures are unremarkable. Surgical clips are seen within the upper abdomen. Impression: 1. Nothing acute is seen on two-view chest x-ray. Diagnostic code #2
[2018-12-13 11:55] VITALS: BP 130/53
--- NOTE | 2018-12-14 18:21 | PCM.DCSUM1 ---
Discharge Summary - Hospital Course Brief History: Luiza is a 53 yo female who underwent left TKA with right knee cortisone injection with Dr. Medrano on 12-12-2018. The procedure was completed under spinal anesthesia with sedation. The pt tolerated the procedure well and was admitted to the Medical-Surgical Unit. Medical management was provided by the Hospitalist service. The pt's Hospital course was remarkable for a cough that was evaluated by the Hospitalist service. The pt's Hgb on POD#1 was 12.5. On POD#1, 325mg ASA BID was initiated for VTE prophylaxis. SCDs and TEDs were also ordered. A Mepilex dressing was placed at the incision site at the time of surgery and remained clean and dry. The pt participated in P.T. and O.T. and progressed well. The pt was allowed to WBAT and used a FWW for mobility. On POD#1, the pt was deemed appropriate to discharge to home with her family. Diagnosis: Stroke: No - Discharge Data Discharge Date: 12/13/18 Discharge Disposition: Home, Self-Care 01 Condition: Good - Patient Summary/Data Consults: Consultations 12/12/18 06:55 OT Evaluation and Treatment [CONS] Routine PT Evaluation and Treatment [CONS] Routine 12/12/18 15:38 Consult to Physician [CONS] Routine 12/12/18 16:50 Consult to Physician [CONS] Routine - Patient Instructions Diet: Usual Diet as Tolerated Activity: Apply Ice, As Tolerated, Elevate Extremity, Full Weight Bearing Driving: Do Not Drive Showering/Bathing: May Shower Wound/Incision Care: Keep Operative Site/Wound Site Clean and Dry, Do NOT Change Dressing Notify Provider of: Fever, Increased Pain, Swelling and Redness, Drainage, Nausea and/or Vomiting Other/Special Instructions: Please get up and moving around EVERY HOUR while awake. Take a short walk every hour while awake. This helps to prevent blood clots. Have help with mobility as needed. Please take 325mg aspirin twice daily - this also helps to prevent blood clots. The medication is being used for blood clot prevention and not for pain control, so please use the medication twice daily as directed. You could use a medication like Zantac or Pepcid and a medication like omeprazole (Prilosec) or Nexium to protect your stomach while using the aspirin. Please wear the JERRY hose during the day and you may remove them at night. Please schedule for P.T. Complete the P.T. exercises and stretches that were instructed in the Hospital. Please use the pain medication as needed. The medication may cause drowsiness and/or constipation. You could use a stool softener like docusate sodium or Colace 100mg twice daily and/or a laxative like Miralax daily for constipation. Contact your primary care provider for further instructions if you are constipated. Discontinue use of the pain medication as soon as able. Please do not use other medications that may cause drowsiness (other pain medications, anxiety pills, sleeping pills, allergy medications that cause drowsiness) while using the pain medication. Please do not use alcohol while using the pain medication. Use the incentive spirometer often. Please place ice to the surgical site often. Place a towel between your skin and the blue pad. Please elevate the limb to decrease swelling. Keep the dressing in place until follow- up. Please notify the Clinic if the dressing is saturated or rolls. Increase protein intake in your diet as this helps with healing. If you are a diabetic, please closely monitor your blood sugars and notify your primary care provider of your values. Elevated blood sugars increases the risk of infection. Please call [phone] with questions or concerns. - Discharge Plan *PRESCRIPTION DRUG MONITORING PROGRAM REVIEWED*: No *COPY OF PRESCRIPTION DRUG MONITORING REPORT IN PATIENT NEGAR: No Prescriptions/Med Rec: Acetaminophen/oxyCODONE [Percocet 325-5 MG] 1 - 2 tab PO Q6H PRN #60 tablet PRN Reason: Pain Aspirin [Ecotrin] 325 mg PO BID #84 tab.ec Cyclobenzaprine [Flexeril] 10 mg PO TID PRN #40 tablet PRN Reason: Spasms Ondansetron [Zofran ODT] 4 mg PO Q6H PRN #20 tab.dis PRN Reason: Nausea Home Medications: Home Meds Calcium Carbonate/Vitamin D3 [Calcium 600 + Vit D 400 Softgl] 1 cap PO DAILY 11/05 [History] Multivitamin [Multivitamins] 1 cap PO DAILY 07/22/16 [History] Betamethasone/Clotrimazole [Lotrisone] 1 applic TOP ASDIRECTED 12/09/18 [History ] Biotin 500 mcg PO DAILY 12/09/18 [History] Cetirizine [ZyrTEC] 10 mg PO DAILY 12/09/18 [History] Fluticasone Propionate [Flonase] 1 spray NS DAILY 12/09/18 [History] Hydrochlorothiazide [Microzide] 12.5 mg PO DAILY 12/09/18 [History] Spironolactone 50 mg PO DAILY 12/09/18 [History] amLODIPine Besylate [Norvasc] 5 mg PO DAILY 12/09/18 [History] Acetaminophen/oxyCODONE [Percocet 325-5 MG] 1 - 2 tab PO Q6H PRN #60 tablet [Rx] Aspirin [Ecotrin] 325 mg PO BID #84 tab.ec 12/12/18 [Rx] Bisacodyl [Dulcolax] 5 mg PO DAILY PRN tablet 12/12/18 [Rx] Cyclobenzaprine [Flexeril] 10 mg PO TID PRN #40 tablet 12/12/18 [Rx] Docusate Sodium [Colace] 100 mg PO BID cap 12/12/18 [Rx] Famotidine [Pepcid] 20 mg PO Q12H tablet 12/12/18 [Rx] Magnesium Hydroxide [Milk of Magnesia] 30 ml PO BID PRN cup 12/12/18 [Rx] Ondansetron [Zofran ODT] 4 mg PO Q6H PRN #20 tab.dis 12/12/18 [Rx] Sennosides [Senna] 8.6 mg PO BID PRN tablet 12/12/18 [Rx] Referrals: Elyse Lui PA-C [Physician Buttonhole Machine Operator] - 12/20/18 10:30 am (Follow up with Elyse Lui on 12/20/18 at 1030 a.m. and 12/27/18 at 1030 a.m.) Savannah Mcguire NP [Primary Care Provider] - 12/23/18 10:00 am (You have an appointment with Savannah on this day if gretta, you can cancel if you would like. The time is 1000 mountain time or 1100 central time. ) - Discharge Summary/Plan Comment DC Time >30 min.: No - Patient Data Vitals - Most Recent: Last Vital Signs Temp 97.0 F 12/13/18 07:35 Pulse 58 L 12/13/18 11:47 Resp 16 12/13/18 11:47 BP 130/53 L 12/13/18 11:47 Pulse Ox 98 12/13/18 11:47 Weight - Most Recent: 230 lb Med Orders - Current: Current Medications Discontinued Medications Acetaminophen (Tylenol) 975 mg PO ONETIME [facility] Stop: 12/12/18 13:00 Last Admin: 12/12/18 11:15 Dose: 975 mg Albuterol (Proventil Hfa) Confirm Administered Dose 6.7 gm INH .STK-MED ONE Stop: 12/12/18 14:27 Amlodipine Besylate (Norvasc) 5 mg PO DAILY [facility] Last Admin: 12/13/18 08:04 Dose: 5 mg Aspirin (Ecotrin) 325 mg PO BID [facility] Last Admin: 12/13/18 08:04 Dose: 325 mg Betamethasone/Clotrimazole (Lotrisone) 0 gm TOP ASDIRECTED [facility] Bisacodyl (Dulcolax) 5 mg PO DAILY PRN PRN Reason: Constipation Bupivacaine HCl (Marcaine 0.25%) Confirm Administered Dose 30 ml .ROUTE .STK- MED ONE Stop: 12/12/18 12:03 Last Admin: 12/12/18 14:28 Dose: 30 ml Bupivacaine HCl (Marcaine 0.25%) Confirm Administered Dose 30 ml .ROUTE .STK- MED ONE Stop: 12/12/18 12:53 Last Admin: 12/12/18 15:00 Dose: 4 ml Bupivacaine HCl (Sensorcaine-Mpf 0.75%) Confirm Administered Dose 30 ml .ROUTE .STK-MED ONE Stop: 12/12/18 12:57 Calcium Carbonate (Calcium Carbonate/Vitamin D 600 Mg-200 Unit) 1 tab PO DAILY [facility] Last Admin: 12/13/18 08:04 Dose: 1 tab Cefazolin Sodium (Ancef) Confirm Administered Dose 2 gm .ROUTE .STK-MED ONE Stop: 12/12/18 12:03 Last Admin: 12/12/18 14:26 Dose: 2 gm Cefazolin Sodium (Ancef) Confirm Administered Dose 2 gm .ROUTE .STK-MED ONE Stop: 12/12/18 13:17 Morphine Sulfate 8 mg/Epinephrine HCl 0.3 mg/Cefuroxime Sodium 750 mg/Ketorolac Tromethamine 30 mg/Sodium Chloride 27.9 ml 0 mg .XX ONETIME ONE Stop: 12/12/18 13:01 Last Admin: 12/12/18 21:21 Dose: Not Given Cyclobenzaprine HCl (Flexeril) 10 mg PO TID PRN PRN Reason: Spasms Dexamethasone (Dexamethasone) Confirm Administered Dose 20 mg .ROUTE .STK-MED ONE Stop: 12/12/18 14:21 Diphenhydramine HCl (Benadryl) 25 mg IVPUSH Q6H PRN PRN Reason: Pruritis Stop: 12/12/18 23:00 Docusate Sodium (Colace) 100 mg PO BID [facility] Last Admin: 12/13/18 08:04 Dose: 100 mg Epinephrine HCl (Adrenalin) Confirm Administered Dose 1 mg .ROUTE .STK-MED ONE Stop: 12/12/18 07:55 Famotidine (Pepcid) 20 mg PO Q12H [facility] Last Admin: 12/13/18 08:04 Dose: 20 mg Fentanyl (Sublimaze) Confirm Administered Dose 100 mcg .ROUTE .STK-MED ONE Stop: 12/12/18 12:12 Fentanyl (Sublimaze) 50 mcg IVPUSH Q5M PRN PRN Reason: Pain Stop: 12/12/18 23:00 Flunisolide (Nasalide Nasal [place]) 0 ml DENA BID [facility] Last Admin: 12/13/18 08:05 Dose: Not Given Fluticasone Propionate (Flonase) 0 gm DENA DAILY [facility] Glycopyrrolate () Confirm Administered Dose 1 mg .ROUTE .STK-MED ONE Stop: 12/12/18 14:24 Hydrochlorothiazide (Hydrochlorothiazide) 12.5 mg PO DAILY [facility] Last Admin: 12/13/18 08:04 Dose: 12.5 mg Lactated Ringer's (Ringers, Lactated) 1,000 mls @ 125 mls/hr IV ASDIRECTED [facility] Stop: 12/12/18 23:00 Last Admin: 12/12/18 11:25 Dose: 125 mls/hr Cefazolin Sodium/Dextrose 2 gm (/ Premix) 50 mls @ 100 mls/hr IV Q8H [facility] Stop: 12/13/18 12:29 Last Admin: 12/13/18 11:41 Dose: 100 mls/hr Lidocaine HCl (Xylocaine-Mpf 1%) Confirm Administered Dose 5 mls @ as directed .ROUTE .STK-MED ONE Stop: 12/12/18 12:58 Sodium Chloride (Normal Saline) 1,000 mls @ 999 mls/hr IV ASDIRECTED [facility] Last Admin: 12/13/18 08:25 Dose: 999 mls/hr Sodium Chloride (Normal Saline) 1,000 mls @ 100 mls/hr IV ASDIRECTED [facility] Last Admin: 12/13/18 10:07 Dose: 100 mls/hr Iodine (Iodine 2% Mild Tincture) Confirm Administered Dose 30 ml .ROUTE .STK- MED ONE Stop: 12/12/18 12:03 Last Admin: 12/12/18 14:23 Dose: 18 ml Ketamine HCl (Ketalar) Confirm Administered Dose 500 mg .ROUTE .STK-MED ONE Stop: 12/12/18 14:12 Ketorolac Tromethamine (Toradol) 15 mg IVPUSH Q6H PRN PRN Reason: Pain Last Admin: 12/13/18 08:05 Dose: 15 mg Ketorolac Tromethamine (Toradol) Confirm Administered Dose 30 mg .ROUTE .STK- MED ONE Stop: 12/12/18 14:08 Lidocaine/Sodium Bicarbonate (Buffered Lidocaine 1% In Ns 8.4%) 0.25 ml IDERM ONETIME PRN PRN Reason: Prior to IV Start Stop: 12/12/18 18:00 Last Admin: 12/12/18 11:25 Dose: 0.25 ml Loratadine (Claritin) 10 mg PO DAILY [facility] Last Admin: 12/13/18 08:04 Dose: 10 mg Magnesium Hydroxide (Milk Of Magnesia) 30 ml PO BID PRN PRN Reason: Constipation Midazolam HCl (Versed 1 Mg/Ml) Confirm Administered Dose 2 mg .ROUTE .STK-MED ONE Stop: 12/12/18 12:53 Miscellaneous Information (Remove Patch) 0 ea TRDERM ONETIME ONE Stop: 12/15/18 13:01 Morphine Sulfate (Morphine) 2 mg IVPUSH Q2H PRN PRN Reason: Breakthrough Pain Multivitamins (Thera) 1 each PO DAILY [facility] Last Admin: 12/13/18 08:04 Dose: 1 each Naloxone HCl (Narcan) 0.1 mg IVPUSH Q5M PRN PRN Reason: Oversedation Non-Formulary Medication (Biotin [Biotin]) 500 mcg PO DAILY [facility] Ondansetron HCl (Zofran) 4 mg IVPUSH Q6H PRN PRN Reason: Nausea/Vomiting Ondansetron HCl (Zofran) Confirm Administered Dose 4 mg .ROUTE .STK-MED ONE Stop: 12/12/18 12:14 Ondansetron HCl (Zofran) 4 mg IVPUSH ONETIME PRN PRN Reason: Nausea/Vomiting Stop: 12/12/18 23:00 Oxycodone HCl (Oxycontin) 10 mg PO ONETIME [facility] Stop: 12/12/18 13:00 Last Admin: 12/12/18 11:15 Dose: 10 mg Oxycodone/Acetaminophen (Percocet 325-5 Mg) 1 - 2 tab PO Q4H PRN PRN Reason: Pain Last Admin: 12/13/18 14:57 Dose: 2 tab Pregabalin (Lyrica) 50 mg PO ONETIME [facility] Stop: 12/12/18 13:00 Last Admin: 12/12/18 11:15 Dose: 50 mg Propofol (Diprivan 20 Ml) Confirm Administered Dose 200 mg .ROUTE .STK-MED ONE Stop: 12/12/18 12:14 Propofol (Diprivan 20 Ml) Confirm Administered Dose 400 mg .ROUTE .STK-MED ONE Stop: 12/12/18 12:54 Propofol (Diprivan 20 Ml) Confirm Administered Dose 200 mg .ROUTE .STK-MED ONE Stop: 12/12/18 14:24 Ropivacaine (Naropin 0.5%) Confirm Administered Dose 30 ml .ROUTE .STK-MED ONE Stop: 12/12/18 07:55 Scopolamine (Transderm-Scop) 1.5 mg TOP ONETIME [facility] Stop: 12/12/18 13:00 Last Admin: 12/12/18 11:05 Dose: 1.5 mg Senna (Senna) 8.6 mg PO BID PRN PRN Reason: Constipation Sodium Chloride (Saline Flush) 10 ml FLUSH ASDIRECTED PRN PRN Reason: Keep Vein Open Stop: 12/12/18 18:00 Spironolactone (Aldactone) 50 mg PO DAILY [facility] Last Admin: 12/13/18 08:04 Dose: 50 mg Tranexamic Acid (Cyklokapron) Confirm Administered Dose 1,000 mg .ROUTE .STK- MED ONE Stop: 12/12/18 12:03 Last Admin: 12/12/18 14:40 Dose: 1,000 mg Triamcinolone Acetonide (Kenalog-40) Confirm Administered Dose 80 mg .ROUTE .STK -MED ONE Stop: 12/12/18 12:53 Last Admin: 12/12/18 15:00 Dose: 80 mg Vancomycin HCl (Vancomycin) Confirm Administered Dose 1 gm .ROUTE .STK-MED ONE Stop: 12/12/18 12:03 Last Admin: 12/12/18 14:32 Dose: 1 gm
--- NOTE | 2018-12-15 09:51 | PCM.OPNOTE ---
- General Post-Op/Procedure Note Date of Surgery/Procedure: 12/12/18 Operative Procedure(s): left total knee with right knee corticosteroid injection Pre Op Diagnosis: bilateral knee osteoarthrosis Post-Op Diagnosis: Same Anesthesia Technique: Local, MAC, Spinal Primary Surgeon: Hema Medrano Anesthesia Provider: Radha Story Bleach Range Operator: Elyse Lui Bleach Range Operator: Brunilda Casas EBL in mLs: 350 Complications: None Condition: Good Free Text/Narrative:: size 5/5 9mm 29x9
--- NOTE | 2018-12-16 07:30 | OR ---
DATE OF OPERATION: 12/12/2018 SURGEON: Hema Medrano MD OPERATION PERFORMED: Left total knee arthroplasty with right knee corticosteroid injection. PREOPERATIVE DIAGNOSIS: Bilateral knee osteoarthrosis. POSTOPERATIVE DIAGNOSIS: Bilateral knee osteoarthrosis. ANESTHESIA: Local MAC with spinal. ANESTHESIA PROVIDER: Candace Trammell. DIRECTOR CONSUMER AFFAIRS: Elyse Lui PA-C and Brunilda Casas LPN. ESTIMATED BLOOD LOSS: 350 mL. COMPLICATIONS: None. CONDITION: Stable. IMPLANTS: 1. Mirna size 5 press-fit CR femur. 2. [place] size 5 press-fit tibial base plate. 3. [place] size 5, 9 mm CS polyethylene insert. 4. Mirna size 29 x 9 mm press-fit patella. DESCRIPTION OF PROCEDURE: The patient was identified in the preop holding area. Proper site was marked and identified by the surgeon. The patient was taken back to the operating theater. After adequate anesthesia, the patient's left lower extremity had a nonsterile tourniquet applied and it was sterilely prepped and draped in the usual sterile fashion. OR time-out was performed. The patient received 2 g IV Ancef. At this time, the left lower extremity was exsanguinated. Tourniquet was insufflated to 300 mmHg. Standard medial parapatellar incision was made. Medial parapatellar arthrotomy was created. Deep fibers of the MCL were raised and anterior fat pad was resected. At this time, attention was turned to the patella. Patella measured a 21, it was resected to a 13 for 29 x 9 mm patella. Drill holes were then drilled and found to be in adequate position. The drill was then drilled in the distal femur and the intramedullary distal femoral cutting guide was then placed. 8 mm was resected off the distal femur and was found to be an adequate resection. Sizing guide was placed. It was found to be a size 5 press-fit CR femur that was shown on the implant record at the beginning of this dictation. The drill holes were drilled for the epicondylar axis using [place] line and epicondyles as reference. At this time, the 4-in-1 cutting block was placed. An anterior posterior and anterior and posterior chamfer cuts were then completed. Attention was turned to the tibia. The posterior medial lateral retractors were placed. The extramedullary tibial guide was placed. It was placed in the old footprint of the ACL. It was aligned with the center of the ankle and 0 degrees of slope, 9 mm was then resected off the unaffected side. There was found to be an acceptable reduction. At this time, posterior osteophytes were removed along with medial and lateral meniscus. A trial implant was placed with a correct sized tibia that was mentioned at the beginning of the dictation. A Mirna size 5, 9 mm CS polyethylene insert was then placed. The patient's knee was brought through range of motion. The patella was tracking centrally and was stable to varus and valgus stress. Alignment was found to be roughly at 0 degrees. The tibia was stamped and drilled in proper rotation. The universal tibial base plate was impacted in place. Next, the [place] size 5 press-fit CR femur impacted into place and the Mirna size 5, 9 mm CS polyethylene insert was placed. The patient's knee was brought into full extension. The patella was then press-fit in place at this time. Tourniquet was deflated. One liter dilute Betadine solution was irrigated through the knee along with 3 L of pulse lavage irrigation with Ancef. Periarticular injection was then completed. The patient's knee was brought through a range of motion. Once the cement had time to set up and it was found to be stable to varus valgus stress, the patella was tracking centrally with full range of motion. At this time, a #2 barbed suture was used for closure of the medial parapatellar arthrotomy. Topical tranexamic acid was placed. 2-0 Vicryl was used subcutaneously, Prineo was used for the skin. The patient tolerated the procedure well and was sent to the PACU in stable condition. After this was completed, under sterile technique, 2 mL of 40 mg Kenalog and 4 mL of 0.25% Marcaine were injected to the right knee. ANNEL /[id number] KIRAN
== END 2018-12-13 15:00 | disposition home or self-care (01) | DRG 302 ==
LOC: JD.LAB 16:04 → EDSTATUS 12-01 15:20 → JD.MS 12-12 10:22 → EDSTATUS 12-12 12:45 → JD.MS 12-12 14:21
PROVIDERS: ADMIT Orthopaedic Surgery; ATTEND Orthopaedic Surgery
PROC: 3E0U33Z Introduction of Anti-inflammatory into Joints, Percutaneous Approach (ICD-10-PCS; principal; 2018-12-12)
PROC: 0SRD0JA Replacement of Left Knee Joint with Synthetic Substitute, Uncemented, Open Approach (ICD-10-PCS; principal; 2018-12-12)
PROC: 3E0U3BZ Introduction of Anesthetic Agent into Joints, Percutaneous Approach (ICD-10-PCS; principal; 2018-12-12)
PROC: 3E0T3BZ Introduction of Anesthetic Agent into Peripheral Nerves and Plexi, Percutaneous Approach (ICD-10-PCS; 2018-12-12)
DX: M17.0 Bilateral primary osteoarthritis of knee (principal); N17.9 Acute kidney failure, unspecified; D72.829 Elevated white blood cell count, unspecified; G89.18 Other acute postprocedural pain; M25.762 Osteophyte, left knee; I10 Essential (primary) hypertension; E78.5 Hyperlipidemia, unspecified; R60.0 Localized edema; E78.00 Pure hypercholesterolemia, unspecified; Z87.891 Personal history of nicotine dependence; Z90.49 Acquired absence of other specified parts of digestive tract; Z79.899 Other long term (current) drug therapy; Z90.710 Acquired absence of both cervix and uterus
CPT/HCPCS: 01402; 36415; 64450; 71046; 71046-26; 73560-26-LT; 73560-LT; 80048; 80053; 81001; 85027; 87641; 97110-GP; 97116-GP; 97161-GP; 97165-GO; 97535-GO; A9270-GY; C1776; J0171; J0690; J0697; J1100; J1885; J2001; J2250; J2270; J2405; J2704; J2795; J3010; J3301; J3370; J3490; J7040; J7120

== ENCOUNTER 2019-06-26 06:07 | Inpatient (IN) | payer BC ==
[~2019-06-26 06:07] MED LIST: Acetaminophen 325 MG Tab PO SCH; Lactated Ringers 1,000 ML IV SCH; Lidocaine 1%/Sod Bicarbonate in NS 8.4% 1 ML Syringe IDERM PRN; Pregabalin 25 MG Cap PO SCH; Scopolamine 1.5 MG Transdermal Patch TOP SCH; Sodium Chloride 0.9% 10 ML Syringe FLUSH PRN; oxyCODONE ER 10 MG TAB.ER PO SCH
[2019-06-26] MEDS ORDERED: Albuterol 0.083% 2.5 MG/3 ML Neb Soln NEB SCH (06:45)
[2019-06-26] MEDS ORDERED: Ropivacaine 0.5% 5 MG/ML 30 ML SDV ONE (06:49)
[2019-06-26] MEDS ORDERED: EPINEPHrine 1 MG/1 ML Amp ONE (06:49)
[2019-06-26] MEDS ORDERED: Midazolam 1 MG/ML 2 ML SDV ONE ×3 (06:53→07:45)
[2019-06-26] MEDS ORDERED: fentaNYL 100 MCG/2 ML SDV ONE (06:53)
[2019-06-26] MEDS ORDERED: Dexamethasone 4 MG/ML 5 ML MDV ONE (06:53)
[2019-06-26] MEDS ORDERED: Propofol 200 MG/20 ML SDV ONE (06:53)
[2019-06-26] MEDS ORDERED: Ondansetron 4 MG/2 ML SDV ONE (06:53)
[2019-06-26] MEDS ORDERED: ceFAZolin 1 GM Vial ONE (06:53)
[2019-06-26] MEDS ORDERED: Lidocaine 1% 4 ML ONE (06:53)
[2019-06-26] MEDS ORDERED: Ketamine 500 mg/10 ML MDV ONE (06:53)
[2019-06-26] MEDS ORDERED: Ketorolac 30 MG/ML SDV ONE (06:53)
[2019-06-26] MEDS ORDERED: diphenhydrAMINE 50 MG/ML SDV ONE (07:36)
[2019-06-26] MEDS: Morphine 8 MG, EPINEPHrine 0.3 MG, Cefuroxime 750 MG, Ketorolac 30 MG, Sodium Chloride ... ONE ×15 (07:51→22:19)
[2019-06-26] MEDS: Iodine/Sodium Iodide 2% Tincture 30 ML Bottle ONE ×2 (07:51→08:14)
[2019-06-26] MEDS: ceFAZolin 1 GM Vial ONE ×2 (07:51→08:17)
[2019-06-26] MEDS: Bupivacaine 0.25% 10 ML SDV ONE ×2 (07:52→08:22)
[2019-06-26] MEDS: Vancomycin 1 GM SDV ONE ×2 (07:53→08:24)
--- NOTE | 2019-06-26 08:04 | PCM.PREANE ---
Preanesthetic Assessment - Anesthesia/Transfusion/Family Hx Anesthesia History: Prior Anesthesia Reaction Type of Anesthesia Reaction: Excessive Nausea/Vomiting Family History of Anesthesia Reaction: No Transfusion History: No Prior Transfusion(s) - Review of Systems General: No Symptoms Pulmonary: Cough (Chronic cough, improving, no inhaler use for 2 weeks. Dry cough noted during preop interview. ) Cardiovascular: No Symptoms Gastrointestinal: No Symptoms Neurological: No Symptoms Other: Reports: None - Physical Assessment NPO Status Date: 06/25/19 NPO Status Time: 22:00 Vital Signs: Last Vital Signs Temp 36.2 C 06/26/19 06:15 Pulse 71 06/26/19 06:15 Resp 16 06/26/19 06:15 BP 128/71 06/26/19 06:15 Pulse Ox 98 06/26/19 06:57 Height: 1.65 m Weight: 99.79 kg ASA Class: 2 Mental Status: Alert & Oriented x3 Airway Class: Mallampati = 2 Dentition: Reports: Normal Dentition Thyro-Mental Finger Breadths: 2 Mouth Opening Finger Breadths: 3 ROM/Head Extension: Full Lungs: Clear to Auscultation, Normal Respiratory Effort, Decreased Breath Sounds Cardiovascular: Regular Rate, Regular Rhythm - Lab Values: Laboratory Last Values MRSA (PCR) Negative 06/06/19 10:58 - Imaging/EKG Impressions: SR at 61bpm - Allergies Allergies/Adverse Reactions: Allergies Allergy/AdvReac Type Severity Reaction Status Date / Time No Known Allergies Allergy Verified 06/25/19 17:56 - Acknowledgements Anesthesia Type Planned: Spinal, Regional Block (Post Op adductor block) Pt an Appropriate Candidate for the Planned Anesthesia: Yes Alternatives and Risks of Anesthesia Discussed w Pt/Guardian: Yes Pt/Guardian Understands and Agrees with Anesthesia Plan: Yes Additional Comments: Luiza has had a cough for the last couple months. The cough started with a cold and has improved. Chest Xray done for preop was normal. Neb treatment ordered. Previous anesthetic noted coughing/wheezing during the procedure. Luiza is agreeable to a spinal anesthetic with light MAC to help with her coughing. Scopalamine patch ordered for PONV prophylaxis. PreAnesthesia Questionnaire HEENT History: Reports: Impaired Vision Other HEENT History: wears glasses Cardiovascular History: Reports: High Cholesterol, Hypertension, Other (See Below) Other Cardiovascular History: Peripheral edema Other Respiratory History: Upper respiratory infection Gastrointestinal History: Reports: None Genitourinary History: Reports: None [employer] History: Reports: None Musculoskeletal History: Reports: Osteoarthritis Other Musculoskeletal History: Bilateral knee pain Neurological History: Reports: None Psychiatric History: Reports: None Endocrine/Metabolic History: Reports: None Hematologic History: Reports: None Immunologic History: Reports: None Oncologic (Cancer) History: Reports: None Dermatologic History: Other Dermatologic History: Acne - Past Surgical History Head Surgeries/Procedures: Reports: None HEENT Surgical History: Reports: Tonsillectomy Cardiovascular Surgical History: Reports: None Respiratory Surgical History: Reports: None GI Surgical History: Reports: Cholecystectomy, EGD Female Surgical History: Reports: Hysterectomy Other Female Surgeries/Procedures: partial hysterectomy Endocrine Surgical History: Reports: None Neurological Surgical History: Reports: None Musculoskeletal Surgical History: Reports: Carpal Tunnel, Knee Replacement, Other (See Below) Other Musculoskeletal Surgeries/Procedures:: Right carpal tunnel release, Right rotator cuff repair, left total knee Oncologic Surgical History: Reports: None Dermatological Surgical History: Reports: None - SUBSTANCE USE Smoking Status *Q: Never Smoker Second Hand Smoke Exposure: No Recreational Drug Use History: No - HOME MEDS Home Medications: Home Meds RX: Calcium Carbonate/Vitamin D3 [Calcium 600 + Vit D 400 Softgl] 1 cap PO DAILY 07/22/16 [History] RX: Multivitamin [Multivitamins] 1 cap PO DAILY 07/22/16 [History] RX: Betamethasone/Clotrimazole [Lotrisone] 1 applic TOP ASDIRECTED 12/09/18 [ History] RX: Fluticasone Propionate [Flonase] 1 spray NS DAILY 12/09/18 [History] RX: Hydrochlorothiazide [Microzide] 12.5 mg PO DAILY 12/09/18 [History] RX: Spironolactone 50 mg PO DAILY 12/09/18 [History] RX: amLODIPine Besylate [Norvasc] 5 mg PO DAILY 12/09/18 [History] Albuterol [Ventolin HFA] 2 puff INH Q4H PRN 06/25/19 [History] Biotin [Biotin-D] 1 gm PO DAILY 06/25/19 [History] Cholecalciferol (Vitamin D3) [Vitamin D3] 1,000 unit PO DAILY 06/25/19 [History] - CURRENT (IN HOUSE) MEDS Current Meds: Current Medications Acetaminophen (Tylenol) 975 mg PO ONETIME [facility] Stop: 06/26/19 12:00 Last Admin: 06/26/19 06:26 Dose: 975 mg Albuterol (Proventil Neb Soln) 2.5 mg NEB ONETIME [facility] Last Admin: 06/26/19 06:55 Dose: 2.5 mg Aspirin (Ecotrin) 325 mg PO BID [facility] Bisacodyl (Dulcolax) 5 mg PO DAILY PRN PRN Reason: Constipation Cyclobenzaprine HCl (Flexeril) 10 mg PO TID PRN PRN Reason: Spasms Docusate Sodium (Colace) 100 mg PO BID [facility] Famotidine (Pepcid) 20 mg PO Q12H [facility] Lactated Ringer's (Ringers, Lactated) 1,000 mls @ 125 mls/hr IV ASDIRECTED [facility] Stop: 06/26/19 23:00 Last Admin: 06/26/19 06:40 Dose: 125 mls/hr Cefazolin Sodium/Dextrose 2 gm (/ Premix) 50 mls @ 100 mls/hr IV Q8H [facility] Stop: 06/27/19 07:29 Ketorolac Tromethamine (Toradol) 15 mg IVPUSH Q6H PRN PRN Reason: Pain Lidocaine/Sodium Bicarbonate (Buffered Lidocaine 1% In Ns 8.4%) 0.25 ml IDERM ONETIME PRN PRN Reason: Prior to IV Start Stop: 06/26/19 18:00 Last Admin: 06/26/19 06:40 Dose: 0.25 ml Magnesium Hydroxide (Milk Of Magnesia) 30 ml PO BID PRN PRN Reason: Constipation Morphine Sulfate (Morphine) 2 mg IVPUSH Q2H PRN PRN Reason: Breakthrough Pain Naloxone HCl (Narcan) 0.1 mg IVPUSH Q5M PRN PRN Reason: Oversedation Ondansetron HCl (Zofran) 4 mg IVPUSH Q6H PRN PRN Reason: Nausea/Vomiting Oxycodone HCl (Oxycontin) 10 mg PO ONETIME [facility] Stop: 06/26/19 12:00 Last Admin: 06/26/19 06:26 Dose: 10 mg Oxycodone/Acetaminophen (Percocet 325-5 Mg) 1 - 2 tab PO Q4H PRN PRN Reason: Pain Pregabalin (Lyrica) 50 mg PO ONETIME [facility] Stop: 06/26/19 12:00 Last Admin: 06/26/19 06:26 Dose: 50 mg Scopolamine (Transderm-Scop) 1.5 mg TOP ONETIME [facility] Stop: 06/26/19 12:00 Last Admin: 06/26/19 06:27 Dose: 1.5 mg Senna (Senna) 8.6 mg PO BID PRN PRN Reason: Constipation Sodium Chloride (Saline Flush) 10 ml FLUSH ASDIRECTED PRN PRN Reason: Keep Vein Open Stop: 06/26/19 18:00 Discontinued Medications Bupivacaine HCl (Sensorcaine-Mpf 0.25%) Confirm Administered Dose 30 ml .ROUTE .STK-MED ONE Stop: 06/26/19 06:15 Cefazolin Sodium (Ancef) Confirm Administered Dose 2 gm .ROUTE .STK-MED ONE Stop: 06/26/19 06:15 Cefazolin Sodium (Ancef) Confirm Administered Dose 2 gm .ROUTE .STK-MED ONE Stop: 06/26/19 06:54 Morphine Sulfate 8 mg/Epinephrine HCl 0.3 mg/Cefuroxime Sodium 750 mg/Ketorolac Tromethamine 30 mg/Sodium Chloride 27.9 ml 0 mg .XX ONETIME ONE Stop: 06/26/19 07:46 Dexamethasone (Dexamethasone) Confirm Administered Dose 20 mg .ROUTE .STK-MED ONE Stop: 06/26/19 06:54 Diphenhydramine HCl (Benadryl) Confirm Administered Dose 50 mg .ROUTE .STK-MED ONE Stop: 06/26/19 07:37 Epinephrine HCl (Adrenalin) Confirm Administered Dose 1 mg .ROUTE .STK-MED ONE Stop: 06/26/19 06:50 Fentanyl (Sublimaze) Confirm Administered Dose 100 mcg .ROUTE .STK-MED ONE Stop: 06/26/19 06:54 Lidocaine HCl (Xylocaine-Mpf 1%) Confirm Administered Dose 4 mls @ as directed .ROUTE .STK-MED ONE Stop: 06/26/19 06:54 Iodine (Iodine 2% Mild Tincture) Confirm Administered Dose 30 ml .ROUTE .STK- MED ONE Stop: 06/26/19 06:15 Ketamine HCl (Ketalar) Confirm Administered Dose 500 mg .ROUTE .STK-MED ONE Stop: 06/26/19 06:54 Ketorolac Tromethamine (Toradol) Confirm Administered Dose 30 mg .ROUTE .STK- MED ONE Stop: 06/26/19 06:54 Midazolam HCl (Versed 1 Mg/Ml) Confirm Administered Dose 2 mg .ROUTE .STK-MED ONE Stop: 06/26/19 06:54 Midazolam HCl (Versed 1 Mg/Ml) Confirm Administered Dose 2 mg .ROUTE .STK-MED ONE Stop: 06/26/19 07:18 Midazolam HCl (Versed 1 Mg/Ml) Confirm Administered Dose 2 mg .ROUTE .STK-MED ONE Stop: 06/26/19 07:46 Ondansetron HCl (Zofran) Confirm Administered Dose 4 mg .ROUTE .STK-MED ONE Stop: 06/26/19 06:54 Propofol (Diprivan 20 Ml) Confirm Administered Dose 600 mg .ROUTE .STK-MED ONE Stop: 06/26/19 06:54 Ropivacaine (Naropin 0.5%) Confirm Administered Dose 30 ml .ROUTE .STK-MED ONE Stop: 06/26/19 06:50 Tranexamic Acid (Cyklokapron) Confirm Administered Dose 1,000 mg .ROUTE .STK- MED ONE Stop: 06/26/19 06:14 Vancomycin HCl (Vancomycin) Confirm Administered Dose 1 gm .ROUTE .STK-MED ONE Stop: 06/26/19 06:15
[2019-06-26] MEDS ORDERED: Lactated Ringers 1,000 ML ONE (08:13)
[2019-06-26] MEDS ORDERED: fentaNYL 100 MCG/2 ML SDV IVPUSH PRN (09:16)
[2019-06-26] MEDS ORDERED: Ondansetron 4 MG/2 ML SDV IVPUSH PRN ×2 (09:16→09:30)
[2019-06-26] MEDS ORDERED: HYDROmorphone 0.5 MG/0.5 ML Syringe IVPUSH PRN (09:16)
--- NOTE | 2019-06-26 09:18 | PCM.POSTAN ---
POST ANESTHESIA ASSESSMENT - MENTAL STATUS Mental Status: Alert, Oriented - VITAL SIGNS Vital Signs: Last Vital Signs 0856 112/50 92 16 98F 92% on 2 L/NC - RESPIRATORY Respiratory Status: Respiratory Rate WNL, Airway Patent, O2 Saturation Stable, Supplemental Oxygen - CARDIOVASCULAR CV Status: Pulse Rate WNL, Blood Pressure Stable - GASTROINTESTINAL GI Status: No Symptoms - PAIN Pain Score: 0 - POST OP HYDRATION Hydration Status: Adequate & Stable
--- NOTE | 2019-06-26 09:21 | PCM.SN ---
- Free Text/Narrative Note: Right selective femoral nerve block at the adductor canal for post-procedure pain control Time Out: 903 Start: 906 End: 910 Chart reviewed. Consent signed. Questions answered. Appropriate monitors applied. Time out performed. Right mid-shaft femur evaluated with ultrasound. Scanning medially femur, I was able to identify the femoral artery in the adductor canal. The saphenous nerve was lateral to the artery. The skin was prepped lateral to the ultrasound probe with chlorahexadine. The 21ga 4 insulated block needle was inserted under direct ultrasound guidance into the adductor canal. 25mL of 0.5% ropivacaine with 1:200,000 epinephrine was injected cirmcumferentially about the nerve with intermittent negative aspiration every 5mL. Patient tolerated the procedure well. No complications noted. See pictures on progress note and vital signs on nurses notes. Block completed postoperatively. Ashly Story CRNA
[2019-06-26] MEDS ORDERED: Cyclobenzaprine 10 MG Tab PO PRN (09:30)
[2019-06-26] MEDS ORDERED: Magnesium Hydroxide 400 MG/5 ML Susp 30 ML Cup PO PRN (09:30)
[2019-06-26] MEDS ORDERED: Morphine 2 MG/ML Syringe IVPUSH PRN (09:30)
[2019-06-26] MEDS ORDERED: Naloxone 0.4 MG/ML SDV IVPUSH PRN (09:30)
[2019-06-26] MEDS ORDERED: Bisacodyl 5 MG Tab PO PRN (09:30)
[2019-06-26] MEDS ORDERED: Sennosides 8.6 MG Tab PO PRN (09:30)
[2019-06-26] MEDS ORDERED: Albuterol 6.7 GM Inhaler INH PRN (09:41)
[2019-06-26] MEDS ORDERED: Betamethasone Dipropionate/Clotrimazole 0.05-1% Crm 15 GM Tube TOP SCH (09:45)
--- NOTE | 2019-06-26 10:11 | CR ---
Right knee: AP and lateral views of the right knee were obtained. Comparison: No previous right knee study. Knee prosthesis is seen. Components are aligned. Soft tissue air is noted. No fracture or other bony abnormality is seen. Impression: 1. Recently placed right knee prosthesis. Nothing acute is otherwise seen. Diagnostic code #2
[2019-06-26] MEDS: Acetaminophen/oxyCODONE 325-5 MG Tab PO PRN ×2 (11:31→21:25)
[2019-06-26] MEDS: Ketorolac 15 MG/ML SDV IVPUSH PRN ×2 (13:59→21:28)
[2019-06-26] MEDS ORDERED: FLU Vacc QS2019-20(6MOS+)/PF 60 MCG/0.5 ML SYRINGE IM ONE (14:00)
[2019-06-26] MEDS: ceFAZolin 2 GM in Premix Bag 1 BAG IV SCH ×2 (14:43→22:15)
[2019-06-26] MEDS: Docusate Sodium 100 MG Cap PO SCH (21:27)
[2019-06-26] MEDS: Famotidine 20 MG Tab PO SCH (21:27)
[2019-06-27] MEDS: ceFAZolin 2 GM in Premix Bag 1 BAG IV SCH (06:18)
[2019-06-27] MEDS: Acetaminophen/oxyCODONE 325-5 MG Tab PO PRN (06:19)
--- NOTE | 2019-06-27 08:12 | PCM.SURGPN ---
- General Info Date of Service: 06/27/19 POD#: 1 Functional Status: Reports: Pain Controlled, Tolerating Diet, Ambulating, Urinating, Incentive Spirometry - Review of Systems Musculoskeletal: Reports: Other (The pt and nursing state the pt has been doing well.) - Patient Data Vitals - Most Recent: Last Vital Signs Temp 98.1 F 06/27/19 04:52 Pulse 64 06/27/19 04:52 Resp 14 06/27/19 04:52 BP 139/96 H 06/27/19 04:52 Pulse Ox 98 06/27/19 05:25 Weight - Most Recent: 226 lb 12.8 oz I&O - Last 24 Hours: Intake & Output 06/26/19 06/27/19 06/27/19 22:59 06:59 14:59 Intake Total 1520 300 Output Total 100 350 Balance 1420 -50 Lab Results Last 24 Hrs: Laboratory Results - last 24 hr 06/27/19 06/27/19 Range/Units 04:55 04:55 WBC 22.08 H (3.98-10.04) K/mm3 RBC 4.04 (3.98-5.22) M/mm3 Hgb 11.8 (11.2-15.7) gm/dl Hct 35.3 (34.1-44.9) % MCV 87.4 (79.4-94.8) fl MCH 29.2 (25.6-32.2) pg MCHC 33.4 (32.2-35.5) g/dl RDW Std Deviation 44.0 (36.4-46.3) fL Plt Count 262 (182-369) K/mm3 MPV 11.4 (9.4-12.3) fl Sodium 137 (136-145) mEq/L Potassium 3.8 (3.5-5.1) mEq/L Chloride 101 (98-107) mEq/L Carbon Dioxide 29 (21-32) mEq/L Anion Gap 10.8 (5-15) BUN 20 H (7-18) mg/dL Creatinine 1.0 (0.55-1.02) mg/dL Est Cr Clr Drug Dosing 58.54 mL/min Estimated GFR (MDRD) 58 (>60) mL/min BUN/Creatinine Ratio 20.0 H (14-18) Glucose 132 H (74-106) mg/dL Calcium 9.2 (8.5-10.1) mg/dL Total Bilirubin 0.3 (0.2-1.0) mg/dL AST 15 (15-37) U/L ALT 17 (14-59) U/L Alkaline Phosphatase 74 (46-116) U/L Total Protein 6.1 L (6.4-8.2) g/dl Albumin 3.0 L (3.4-5.0) g/dl Globulin 3.1 gm/dL Albumin/Globulin Ratio 1.0 (1-2) Med Orders - Current: Current Medications Albuterol (Proventil Hfa) 0 gm INH Q4H PRN PRN Reason: cold like symptoms Amlodipine Besylate (Norvasc) 5 mg PO DAILY [facility] Aspirin (Ecotrin) 325 mg PO BID [facility] Betamethasone/Clotrimazole (Lotrisone) 0 gm TOP ASDIRECTED [facility] Bisacodyl (Dulcolax) 5 mg PO DAILY PRN PRN Reason: Constipation Calcium Carbonate (Calcium Carbonate/Vitamin D 600 Mg-200 Unit) 1 tab PO DAILY [facility] Cholecalciferol (Vitamin D3) 25 mcg PO DAILY [facility] Cyclobenzaprine HCl (Flexeril) 10 mg PO TID PRN PRN Reason: Spasms Docusate Sodium (Colace) 100 mg PO BID [facility] Last Admin: 06/26/19 21:27 Dose: 100 mg Famotidine (Pepcid) 20 mg PO Q12H [facility] Last Admin: 06/26/19 21:27 Dose: 20 mg Hydrochlorothiazide (Hydrochlorothiazide) 12.5 mg PO DAILY [facility] Ketorolac Tromethamine (Toradol) 15 mg IVPUSH Q6H PRN PRN Reason: Pain Last Admin: 06/26/19 21:28 Dose: 15 mg Magnesium Hydroxide (Milk Of Magnesia) 30 ml PO BID PRN PRN Reason: Constipation Morphine Sulfate (Morphine) 2 mg IVPUSH Q2H PRN PRN Reason: Breakthrough Pain Multivitamins (Thera) 1 each PO DAILY [facility] Naloxone HCl (Narcan) 0.1 mg IVPUSH Q5M PRN PRN Reason: Oversedation Ondansetron HCl (Zofran) 4 mg IVPUSH Q6H PRN PRN Reason: Nausea/Vomiting Oxycodone/Acetaminophen (Percocet 325-5 Mg) 1 - 2 tab PO Q4H PRN PRN Reason: Pain Last Admin: 06/27/19 06:19 Dose: 1 tab Fluticasone Propionate [Flonase] Nasal [place] 0 each DENA DAILY [facility] Senna (Senna) 8.6 mg PO BID PRN PRN Reason: Constipation Last Admin: 06/26/19 14:43 Dose: 8.6 mg Spironolactone (Aldactone) 50 mg PO DAILY [facility] Discontinued Medications Acetaminophen (Tylenol) 975 mg PO ONETIME [facility] Stop: 06/26/19 12:00 Last Admin: 06/26/19 06:26 Dose: 975 mg Albuterol (Proventil Neb Soln) 2.5 mg NEB ONETIME [facility] Last Admin: 06/26/19 06:55 Dose: 2.5 mg Bupivacaine HCl (Sensorcaine-Mpf 0.25%) Confirm Administered Dose 30 ml .ROUTE .STK-MED ONE Stop: 06/26/19 06:15 Last Admin: 06/26/19 08:22 Dose: 30 ml Cefazolin Sodium (Ancef) Confirm Administered Dose 2 gm .ROUTE .STK-MED ONE Stop: 06/26/19 06:15 Last Admin: 06/26/19 08:17 Dose: 2 gm Cefazolin Sodium (Ancef) Confirm Administered Dose 2 gm .ROUTE .STK-MED ONE Stop: 06/26/19 06:54 Morphine Sulfate 8 mg/Epinephrine HCl 0.3 mg/Cefuroxime Sodium 750 mg/Ketorolac Tromethamine 30 mg/Sodium Chloride 27.9 ml 0 mg .XX ONETIME ONE Stop: 06/26/19 07:46 Last Admin: 06/26/19 22:19 Dose: Not Given Dexamethasone (Dexamethasone) Confirm Administered Dose 20 mg .ROUTE .STK-MED ONE Stop: 06/26/19 06:54 Diphenhydramine HCl (Benadryl) Confirm Administered Dose 50 mg .ROUTE .STK-MED ONE Stop: 06/26/19 07:37 Epinephrine HCl (Adrenalin) Confirm Administered Dose 1 mg .ROUTE .STK-MED ONE Stop: 06/26/19 06:50 Fentanyl (Sublimaze) Confirm Administered Dose 100 mcg .ROUTE .STK-MED ONE Stop: 06/26/19 06:54 Fentanyl (Sublimaze) 50 mcg IVPUSH Q5M PRN PRN Reason: Pain Stop: 06/26/19 12:00 Hydromorphone HCl (Dilaudid) 0.5 mg IVPUSH Q10M PRN PRN Reason: Pain (severe 7-10) Stop: 06/26/19 12:00 Lactated Ringer's (Ringers, Lactated) 1,000 mls @ 125 mls/hr IV ASDIRECTED [facility] Stop: 06/26/19 23:00 Last Admin: 06/26/19 06:40 Dose: 125 mls/hr Lidocaine HCl (Xylocaine-Mpf 1%) Confirm Administered Dose 4 mls @ as directed .ROUTE .STK-MED ONE Stop: 06/26/19 06:54 Cefazolin Sodium/Dextrose 2 gm (/ Premix) 50 mls @ 100 mls/hr IV Q8H [facility] Stop: 06/27/19 07:29 Last Admin: 06/27/19 06:18 Dose: 100 mls/hr Lactated Ringer's (Ringers, Lactated) Confirm Administered Dose 1,000 mls @ as directed .ROUTE .STK-MED ONE Stop: 06/26/19 08:14 Influenza Virus Vaccine (Pharmacy To Dose - Influenza Vaccine) 1 each IM ONETIME ONE Stop: 06/26/19 13:33 Last Admin: 06/26/19 20:43 Dose: Not Given Influenza Virus Vaccine (Fluzone Quad [id number] Syringe) 60 mcg IM .ONCE ONE Stop: 06/26/19 14:01 Iodine (Iodine 2% Mild Tincture) Confirm Administered Dose 30 ml .ROUTE .STK- MED ONE Stop: 06/26/19 06:15 Last Admin: 06/26/19 08:14 Dose: 18 ml Ketamine HCl (Ketalar) Confirm Administered Dose 500 mg .ROUTE .STK-MED ONE Stop: 06/26/19 06:54 Ketorolac Tromethamine (Toradol) Confirm Administered Dose 30 mg .ROUTE .STK- MED ONE Stop: 06/26/19 06:54 Lidocaine/Sodium Bicarbonate (Buffered Lidocaine 1% In Ns 8.4%) 0.25 ml IDERM ONETIME PRN PRN Reason: Prior to IV Start Stop: 06/26/19 18:00 Last Admin: 06/26/19 06:40 Dose: 0.25 ml Midazolam HCl (Versed 1 Mg/Ml) Confirm Administered Dose 2 mg .ROUTE .STK-MED ONE Stop: 06/26/19 06:54 Midazolam HCl (Versed 1 Mg/Ml) Confirm Administered Dose 2 mg .ROUTE .STK-MED ONE Stop: 06/26/19 07:18 Midazolam HCl (Versed 1 Mg/Ml) Confirm Administered Dose 2 mg .ROUTE .STK-MED ONE Stop: 06/26/19 07:46 Non-Formulary Medication (Biotin [Biotin-D]) 1 gm PO DAILY [facility] Ondansetron HCl (Zofran) Confirm Administered Dose 4 mg .ROUTE .STK-MED ONE Stop: 06/26/19 06:54 Ondansetron HCl (Zofran) 4 mg IVPUSH ONETIME PRN PRN Reason: Nausea/Vomiting Stop: 06/26/19 12:00 Oxycodone HCl (Oxycontin) 10 mg PO ONETIME [facility] Stop: 06/26/19 12:00 Last Admin: 06/26/19 06:26 Dose: 10 mg Pregabalin (Lyrica) 50 mg PO ONETIME [facility] Stop: 06/26/19 12:00 Last Admin: 06/26/19 06:26 Dose: 50 mg Propofol (Diprivan 20 Ml) Confirm Administered Dose 600 mg .ROUTE .STK-MED ONE Stop: 06/26/19 06:54 Ropivacaine (Naropin 0.5%) Confirm Administered Dose 30 ml .ROUTE .STK-MED ONE Stop: 06/26/19 06:50 Scopolamine (Transderm-Scop) 1.5 mg TOP ONETIME [facility] Stop: 06/26/19 12:00 Last Admin: 06/26/19 06:27 Dose: 1.5 mg Sodium Chloride (Saline Flush) 10 ml FLUSH ASDIRECTED PRN PRN Reason: Keep Vein Open Stop: 06/26/19 18:00 Tranexamic Acid (Cyklokapron) Confirm Administered Dose 1,000 mg .ROUTE .STK- MED ONE Stop: 06/26/19 06:14 Last Admin: 06/26/19 08:28 Dose: 1,000 mg Vancomycin HCl (Vancomycin) Confirm Administered Dose 1 gm .ROUTE .STK-MED ONE Stop: 06/26/19 06:15 Last Admin: 06/26/19 08:24 Dose: 1 gm - Exam Wound/Incisions: Dressing Dry and Intact General: Alert, Cooperative, No Acute Distress Lungs: Normal Respiratory Effort Extremities: Other (NVS intact for BLE. Marck's negative.) - Problem List Review Problem List Initiated/Reviewed/Updated: Yes - My Orders Last 24 Hours: Active Orders 24 hr Category Date Time Status Cooling Warming Measures [RC] ASDIRECTED Care 06/26/19 09:16 Inactive Influenza Vaccine Charge [RC] .DISCHARGE Care 06/26/19 13:33 Active Pulse Oximetry [RC] ASDIRECTED Care 06/26/19 09:16 Active Ready for Discharge [RC] PER UNIT ROUTINE Care 06/27/19 08:09 Ordered Vital Signs [RC] Q15M Care 06/26/19 09:16 Inactive Regular Diet [DIET] Diet 06/26/19 Lunch Active Acetaminophen/oxyCODONE [Percocet 325-5 MG] Med 06/26/19 09:30 Active 1 - 2 tab PO Q4H PRN Albuterol [Proventil HFA] Med 06/26/19 09:41 Active 0 gm INH Q4H PRN Aspirin [Ecotrin] Med 06/27/19 09:00 Active 325 mg PO BID Betamethasone/Clotrimazole [Lotrisone] Med 06/26/19 09:45 Active 0 gm TOP ASDIRECTED Bisacodyl [Dulcolax] Med 06/26/19 09:30 Active 5 mg PO DAILY PRN Calcium Carbonate/Vitamin D3 [Calcium Carbonate/Vitamin Med 06/27/19 09:00 Active D 600 MG-200 Unit] 1 tab PO DAILY Cholecalciferol (Vitamin D3) [Vitamin D3] Med 06/27/19 09:00 Active 25 mcg PO DAILY Cyclobenzaprine [Flexeril] Med 06/26/19 09:30 Active 10 mg PO TID PRN Docusate Sodium [Colace] Med 06/26/19 21:00 Active 100 mg PO BID Famotidine [Pepcid] Med 06/26/19 21:00 Active 20 mg PO Q12H Ketorolac [Toradol] Med 06/26/19 09:30 Active 15 mg IVPUSH Q6H PRN Magnesium Hydroxide [Milk of Magnesia] Med 06/26/19 09:30 Active 30 ml PO BID PRN Morphine Med 06/26/19 09:30 Active 2 mg IVPUSH Q2H PRN Multivitamins,Therapeutic [Thera] Med 06/27/19 09:00 Active 1 each PO DAILY Naloxone [Narcan] Med 06/26/19 09:30 Active 0.1 mg IVPUSH Q5M PRN Ondansetron [Zofran] Med 06/26/19 09:30 Active 4 mg IVPUSH Q6H PRN Patient's Own Medication [Ptom] Med 06/27/19 09:00 Active 0 each DENA DAILY Sennosides [Senna] Med 06/26/19 09:30 Active 8.6 mg PO BID PRN Spironolactone [Aldactone] Med 06/27/19 09:00 Active 50 mg PO DAILY amLODIPine [Norvasc] Med 06/27/19 09:00 Active 5 mg PO DAILY hydroCHLOROthiazide Med 06/27/19 09:00 Active 12.5 mg PO DAILY Medication Orders Albuterol (Proventil Hfa) 0 gm INH Q4H PRN PRN Reason: cold like symptoms Amlodipine Besylate (Norvasc) 5 mg PO DAILY [facility] Aspirin (Ecotrin) 325 mg PO BID [facility] Betamethasone/Clotrimazole (Lotrisone) 0 gm TOP ASDIRECTED [facility] Bisacodyl (Dulcolax) 5 mg PO DAILY PRN PRN Reason: Constipation Calcium Carbonate (Calcium Carbonate/Vitamin D 600 Mg-200 Unit) 1 tab PO DAILY [facility] Cholecalciferol (Vitamin D3) 25 mcg PO DAILY [facility] Cyclobenzaprine HCl (Flexeril) 10 mg PO TID PRN PRN Reason: Spasms Docusate Sodium (Colace) 100 mg PO BID [facility] Last Admin: 06/26/19 21:27 Dose: 100 mg Famotidine (Pepcid) 20 mg PO Q12H [facility] Last Admin: 06/26/19 21:27 Dose: 20 mg Hydrochlorothiazide (Hydrochlorothiazide) 12.5 mg PO DAILY [facility] Ketorolac Tromethamine (Toradol) 15 mg IVPUSH Q6H PRN PRN Reason: Pain Last Admin: 06/26/19 21:28 Dose: 15 mg Admin: 06/26/19 13:59 Dose: 15 mg Magnesium Hydroxide (Milk Of Magnesia) 30 ml PO BID PRN PRN Reason: Constipation Morphine Sulfate (Morphine) 2 mg IVPUSH Q2H PRN PRN Reason: Breakthrough Pain Multivitamins (Thera) 1 each PO DAILY [facility] Naloxone HCl (Narcan) 0.1 mg IVPUSH Q5M PRN PRN Reason: Oversedation Ondansetron HCl (Zofran) 4 mg IVPUSH Q6H PRN PRN Reason: Nausea/Vomiting Oxycodone/Acetaminophen (Percocet 325-5 Mg) 1 - 2 tab PO Q4H PRN PRN Reason: Pain Last Admin: 06/27/19 06:19 Dose: 1 tab Admin: 06/26/19 21:25 Dose: 1 tab Admin: 06/26/19 11:31 Dose: 1 tab Fluticasone Propionate [Flonase] Nasal [place] 0 each DENA DAILY [facility] Senna (Senna) 8.6 mg PO BID PRN PRN Reason: Constipation Last Admin: 06/26/19 14:43 Dose: 8.6 mg Spironolactone (Aldactone) 50 mg PO DAILY [facility] - Assessment Assessment (Free Text/Narrative):: POD#1 - right TKA - Plan Plan (Free Text/Narrative):: 1. Hgb 11.8. WBC elevated likely due to steroids given yesterday. 2. Discharge to home today. 3. Outpatient therapy. 4. 325mg ASA PO BID, frequent mobility, TEDs. The pt's case was discussed with Dr Medrano.
[2019-06-27] MEDS ORDERED: Aspirin 325 MG Tab.EC PO SCH (09:00)
[2019-06-27] MEDS ORDERED: Calcium Carbonate/Vitamin D3 600 MG-200 Units Tab PO SCH (09:00)
[2019-06-27] MEDS ORDERED: Spironolactone 25 MG Tab PO SCH (09:00)
[2019-06-27] MEDS ORDERED: Hydrochlorothiazide 12.5 MG Cap PO SCH (09:00)
[2019-06-27] MEDS ORDERED: Cholecalciferol (Vitamin D3) 25 MCG Tab PO SCH (09:00)
[2019-06-27] MEDS ORDERED: amLODIPine 5 MG Tab PO SCH (09:00)
[2019-06-27] MEDS ORDERED: FLUTICASONE PROPIONATE NAS SCH (09:00)
[2019-06-27] MEDS ORDERED: BIOTIN 1 GM PO SCH (09:00)
[2019-06-27] MEDS ORDERED: Multivitamins,Therapeutic Tab PO SCH (09:00)
--- NOTE | 2019-06-27 09:06 | PCM48HPAN ---
Post Anesthesia Note - EVALUATION WITHIN 48HRS OF ANESTHETIC Vital Signs in Normal Range: Yes Patient Participated in Evaluation: Yes Respiratory Function Stable: Yes Airway Patent: Yes Cardiovascular Function Stable: Yes Hydration Status Stable: Yes Pain Control Satisfactory: Yes Nausea and Vomiting Control Satisfactory: Yes Mental Status Recovered: Yes Vital Signs: Last Vital Signs Temp 36.7 C 06/27/19 04:52 Pulse 64 06/27/19 04:52 Resp 14 06/27/19 04:52 BP 139/96 H 06/27/19 04:52 Pulse Ox 98 06/27/19 05:25
--- NOTE | 2019-06-27 09:17 | PCM.DCSUM1 ---
Discharge Summary - Hospital Course Brief History: Luiza is a 53 yo female who underwent right TKA with Dr. Medrano on 06-26-2019. The procedure was completed under spinal anesthesia with MAC. A post-operative adductor canal block was provided. The pt tolerated the procedure well and was admitted to the Medical-Surgical Unit. The pt's Hospital course was uneventful. The pt's Hgb on POD#1 was 11.8. On POD#1, 325mg ASA BID was initiated for VTE prophylaxis. SCDs and TEDs were also ordered. A Mepilex dressing was placed at the incision site at the time of surgery and remained clean and dry. The pt participated in P.T. and O.T. and progressed well. The pt was allowed to WBAT and used a FWW for mobility. On POD#1, the pt was deemed appropriate to discharge to home. - Discharge Data Discharge Date: 06/27/19 Discharge Disposition: Home, Self-Care 01 Condition: Good - Referral to Home Health Primary Care Physician: Savannah Mcguire NP - Patient Summary/Data Consults: Consultations 06/26/19 06:57 OT Evaluation and Treatment [CONS] Routine PT Evaluation and Treatment [CONS] Routine - Patient Instructions Diet: Usual Diet as Tolerated Activity: Apply Ice, As Tolerated, Elevate Extremity, Full Weight Bearing Driving: Do Not Drive Showering/Bathing: May Shower Wound/Incision Care: Keep Operative Site/Wound Site Clean and Dry, Do NOT Change Dressing Notify Provider of: Fever, Increased Pain, Swelling and Redness, Drainage, Nausea and/or Vomiting Other/Special Instructions: Please get up and moving around EVERY HOUR while awake. This helps to prevent blood clots. Please use your walker and have help with mobility as needed. Take a short walk in your home every hour while awake. Please take 325mg Aspirin TWICE daily. The aspirin is being used for blood clot prevention and not for pain management so please do not miss a dose of the medication. You could use a medication like Pepcid and a medication like Prilosec or Nexium to protect your stomach while you are using the aspirin. At home, please complete the exercises that you learned during the Hospital stay. Schedule for physical therapy. Use the pain medication as needed. The medication may cause drowsiness and constipation. Contact your primary care provider for instructions if you are constipated. You may use a stool softener like docusate sodium or Colace 100mg twice daily and/or a laxative like Miralax daily for constipation. Increase your water and fiber intake while you are using the pain medication. Discontinue use of the pain medication as soon as able. Please do not use other medications that may cause drowsiness (other pain medications, anxiety pills, cold medications, sleeping pills, etc) while using the prescription pain medication. Do not use alcohol while using the pain medication. You may use acetaminophen or Tylenol for pain management, however, please ensure you are not using over 4000 mg or 4 grams of acetaminophen per day from all sources. Your pain medication has 325mg of acetaminophen per tablet. At this time, please do not use ibuprofen (Motrin, Advil) or naproxen (Aleve) for pain management as you are using the aspirin. When the aspirin course is completed in 4 to 6 weeks, you could use ibuprofen or naproxen for pain management (if this is allowed by your primary care provider). Wear the JERRY hose during the day and you may remove these at night. Elevate the limb to decrease swelling. Place ice to the area often. Place a towel between your skin and the blue pad. Use the incentive spirometer often. Take deep breaths throughout the day. Please keep the dressing in place until follow-up. Notify the Clinic if the dressing becomes saturated. Increase your protein intake while you are healing. Call the Clinic with questions or concerns - [phone]. - Discharge Plan *PRESCRIPTION DRUG MONITORING PROGRAM REVIEWED*: No *COPY OF PRESCRIPTION DRUG MONITORING REPORT IN PATIENT NEGAR: No Prescriptions/Med Rec: Acetaminophen/oxyCODONE [Percocet 325-5 MG] 1 - 2 tab PO Q4H PRN #60 tablet PRN Reason: Pain Aspirin [Ecotrin EC] 325 mg PO BID #84 tab.ec Cyclobenzaprine [Flexeril] 10 mg PO TID PRN #40 tablet PRN Reason: Spasms Home Medications: Home Meds Calcium Carbonate/Vitamin D3 [Calcium 600 + Vit D 400 Softgl] 1 cap PO DAILY 11/05 [History] Multivitamin [Multivitamins] 1 cap PO DAILY 07/22/16 [History] Betamethasone/Clotrimazole [Lotrisone] 1 applic TOP ASDIRECTED 12/09/18 [History ] Fluticasone Propionate [Flonase] 1 spray NS DAILY 12/09/18 [History] Hydrochlorothiazide [Microzide] 12.5 mg PO DAILY 12/09/18 [History] Spironolactone 50 mg PO DAILY 12/09/18 [History] amLODIPine Besylate [Norvasc] 5 mg PO DAILY 12/09/18 [History] Albuterol [Ventolin HFA] 2 puff INH Q4H PRN 06/25/19 [History] Biotin [Biotin-D] 1 gm PO DAILY 06/25/19 [History] Cholecalciferol (Vitamin D3) [Vitamin D3] 1,000 unit PO DAILY 06/25/19 [History] Acetaminophen/oxyCODONE [Percocet 325-5 MG] 1 - 2 tab PO Q4H PRN #60 tablet 05/08 [Rx] Aspirin [Ecotrin EC] 325 mg PO BID #84 tab.ec 06/27/19 [Rx] Bisacodyl [Dulcolax] 5 mg PO DAILY PRN tablet 06/27/19 [Rx] Cyclobenzaprine [Flexeril] 10 mg PO TID PRN #40 tablet 06/27/19 [Rx] Docusate Sodium [Colace] 100 mg PO BID cap 06/27/19 [Rx] Famotidine [Pepcid] 20 mg PO Q12H tablet 06/27/19 [Rx] Magnesium Hydroxide [Milk of Magnesia] 30 ml PO BID PRN cup 06/27/19 [Rx] Sennosides [Senna] 8.6 mg PO BID PRN tablet 06/27/19 [Rx] Referrals: Elyse Lui PA-C [[facility]] - - Discharge Summary/Plan Comment DC Time >30 min.: No - Patient Data Vitals - Most Recent: Last Vital Signs Temp 98.1 F 06/27/19 04:52 Pulse 64 06/27/19 04:52 Resp 14 06/27/19 04:52 BP 139/96 H 06/27/19 04:52 Pulse Ox 98 06/27/19 05:25 Weight - Most Recent: 226 lb 12.8 oz I&O - Last 24 hours: Intake & Output 06/26/19 06/27/19 06/27/19 22:59 06:59 14:59 Intake Total 1520 300 Output Total 100 350 Balance 1420 -50 Lab Results - Last 24 hrs: Laboratory Results - last 24 hr 06/27/19 06/27/19 Range/Units 04:55 04:55 WBC 22.08 H (3.98-10.04) K/mm3 RBC 4.04 (3.98-5.22) M/mm3 Hgb 11.8 (11.2-15.7) gm/dl Hct 35.3 (34.1-44.9) % MCV 87.4 (79.4-94.8) fl MCH 29.2 (25.6-32.2) pg MCHC 33.4 (32.2-35.5) g/dl RDW Std Deviation 44.0 (36.4-46.3) fL Plt Count 262 (182-369) K/mm3 MPV 11.4 (9.4-12.3) fl Sodium 137 (136-145) mEq/L Potassium 3.8 (3.5-5.1) mEq/L Chloride 101 (98-107) mEq/L Carbon Dioxide 29 (21-32) mEq/L Anion Gap 10.8 (5-15) BUN 20 H (7-18) mg/dL Creatinine 1.0 (0.55-1.02) mg/dL Est Cr Clr Drug Dosing 58.54 mL/min Estimated GFR (MDRD) 58 (>60) mL/min BUN/Creatinine Ratio 20.0 H (14-18) Glucose 132 H (74-106) mg/dL Calcium 9.2 (8.5-10.1) mg/dL Total Bilirubin 0.3 (0.2-1.0) mg/dL AST 15 (15-37) U/L ALT 17 (14-59) U/L Alkaline Phosphatase 74 (46-116) U/L Total Protein 6.1 L (6.4-8.2) g/dl Albumin 3.0 L (3.4-5.0) g/dl Globulin 3.1 gm/dL Albumin/Globulin Ratio 1.0 (1-2) Med Orders - Current: Current Medications Albuterol (Proventil Hfa) 0 gm INH Q4H PRN PRN Reason: cold like symptoms Amlodipine Besylate (Norvasc) 5 mg PO DAILY [facility] Aspirin (Ecotrin) 325 mg PO BID [facility] Betamethasone/Clotrimazole (Lotrisone) 0 gm TOP ASDIRECTED [facility] Bisacodyl (Dulcolax) 5 mg PO DAILY PRN PRN Reason: Constipation Calcium Carbonate (Calcium Carbonate/Vitamin D 600 Mg-200 Unit) 1 tab PO DAILY [facility] Cholecalciferol (Vitamin D3) 25 mcg PO DAILY [facility] Cyclobenzaprine HCl (Flexeril) 10 mg PO TID PRN PRN Reason: Spasms Docusate Sodium (Colace) 100 mg PO BID [facility] Last Admin: 06/26/19 21:27 Dose: 100 mg Famotidine (Pepcid) 20 mg PO Q12H [facility] Last Admin: 06/26/19 21:27 Dose: 20 mg Hydrochlorothiazide (Hydrochlorothiazide) 12.5 mg PO DAILY [facility] Ketorolac Tromethamine (Toradol) 15 mg IVPUSH Q6H PRN PRN Reason: Pain Last Admin: 06/26/19 21:28 Dose: 15 mg Magnesium Hydroxide (Milk Of Magnesia) 30 ml PO BID PRN PRN Reason: Constipation Morphine Sulfate (Morphine) 2 mg IVPUSH Q2H PRN PRN Reason: Breakthrough Pain Multivitamins (Thera) 1 each PO DAILY [facility] Naloxone HCl (Narcan) 0.1 mg IVPUSH Q5M PRN PRN Reason: Oversedation Ondansetron HCl (Zofran) 4 mg IVPUSH Q6H PRN PRN Reason: Nausea/Vomiting Oxycodone/Acetaminophen (Percocet 325-5 Mg) 1 - 2 tab PO Q4H PRN PRN Reason: Pain Last Admin: 06/27/19 06:19 Dose: 1 tab Fluticasone Propionate [Flonase] Nasal [place] 0 each DENA DAILY [facility] Senna (Senna) 8.6 mg PO BID PRN PRN Reason: Constipation Last Admin: 06/26/19 14:43 Dose: 8.6 mg Spironolactone (Aldactone) 50 mg PO DAILY [facility] Discontinued Medications Acetaminophen (Tylenol) 975 mg PO ONETIME [facility] Stop: 06/26/19 12:00 Last Admin: 06/26/19 06:26 Dose: 975 mg Albuterol (Proventil Neb Soln) 2.5 mg NEB ONETIME [facility] Last Admin: 06/26/19 06:55 Dose: 2.5 mg Bupivacaine HCl (Sensorcaine-Mpf 0.25%) Confirm Administered Dose 30 ml .ROUTE .STK-MED ONE Stop: 06/26/19 06:15 Last Admin: 06/26/19 08:22 Dose: 30 ml Cefazolin Sodium (Ancef) Confirm Administered Dose 2 gm .ROUTE .STK-MED ONE Stop: 06/26/19 06:15 Last Admin: 06/26/19 08:17 Dose: 2 gm Cefazolin Sodium (Ancef) Confirm Administered Dose 2 gm .ROUTE .STK-MED ONE Stop: 06/26/19 06:54 Morphine Sulfate 8 mg/Epinephrine HCl 0.3 mg/Cefuroxime Sodium 750 mg/Ketorolac Tromethamine 30 mg/Sodium Chloride 27.9 ml 0 mg .XX ONETIME ONE Stop: 06/26/19 07:46 Last Admin: 06/26/19 22:19 Dose: Not Given Dexamethasone (Dexamethasone) Confirm Administered Dose 20 mg .ROUTE .STK-MED ONE Stop: 06/26/19 06:54 Diphenhydramine HCl (Benadryl) Confirm Administered Dose 50 mg .ROUTE .STK-MED ONE Stop: 06/26/19 07:37 Epinephrine HCl (Adrenalin) Confirm Administered Dose 1 mg .ROUTE .STK-MED ONE Stop: 06/26/19 06:50 Fentanyl (Sublimaze) Confirm Administered Dose 100 mcg .ROUTE .STK-MED ONE Stop: 06/26/19 06:54 Fentanyl (Sublimaze) 50 mcg IVPUSH Q5M PRN PRN Reason: Pain Stop: 06/26/19 12:00 Hydromorphone HCl (Dilaudid) 0.5 mg IVPUSH Q10M PRN PRN Reason: Pain (severe 7-10) Stop: 06/26/19 12:00 Lactated Ringer's (Ringers, Lactated) 1,000 mls @ 125 mls/hr IV ASDIRECTED [facility] Stop: 06/26/19 23:00 Last Admin: 06/26/19 06:40 Dose: 125 mls/hr Lidocaine HCl (Xylocaine-Mpf 1%) Confirm Administered Dose 4 mls @ as directed .ROUTE .STK-MED ONE Stop: 06/26/19 06:54 Cefazolin Sodium/Dextrose 2 gm (/ Premix) 50 mls @ 100 mls/hr IV Q8H [facility] Stop: 06/27/19 07:29 Last Admin: 06/27/19 06:18 Dose: 100 mls/hr Lactated Ringer's (Ringers, Lactated) Confirm Administered Dose 1,000 mls @ as directed .ROUTE .STK-MED ONE Stop: 06/26/19 08:14 Influenza Virus Vaccine (Pharmacy To Dose - Influenza Vaccine) 1 each IM ONETIME ONE Stop: 06/26/19 13:33 Last Admin: 06/26/19 20:43 Dose: Not Given Influenza Virus Vaccine (Fluzone Quad Syringe) 60 mcg IM .ONCE ONE Stop: 06/26/19 14:01 Iodine (Iodine 2% Mild Tincture) Confirm Administered Dose 30 ml .ROUTE .STK- MED ONE Stop: 06/26/19 06:15 Last Admin: 06/26/19 08:14 Dose: 18 ml Ketamine HCl (Ketalar) Confirm Administered Dose 500 mg .ROUTE .STK-MED ONE Stop: 06/26/19 06:54 Ketorolac Tromethamine (Toradol) Confirm Administered Dose 30 mg .ROUTE .STK- MED ONE Stop: 06/26/19 06:54 Lidocaine/Sodium Bicarbonate (Buffered Lidocaine 1% In Ns 8.4%) 0.25 ml IDERM ONETIME PRN PRN Reason: Prior to IV Start Stop: 06/26/19 18:00 Last Admin: 06/26/19 06:40 Dose: 0.25 ml Midazolam HCl (Versed 1 Mg/Ml) Confirm Administered Dose 2 mg .ROUTE .STK-MED ONE Stop: 06/26/19 06:54 Midazolam HCl (Versed 1 Mg/Ml) Confirm Administered Dose 2 mg .ROUTE .STK-MED ONE Stop: 06/26/19 07:18 Midazolam HCl (Versed 1 Mg/Ml) Confirm Administered Dose 2 mg .ROUTE .STK-MED ONE Stop: 06/26/19 07:46 Non-Formulary Medication (Biotin [Biotin-D]) 1 gm PO DAILY [facility] Ondansetron HCl (Zofran) Confirm Administered Dose 4 mg .ROUTE .STK-MED ONE Stop: 06/26/19 06:54 Ondansetron HCl (Zofran) 4 mg IVPUSH ONETIME PRN PRN Reason: Nausea/Vomiting Stop: 06/26/19 12:00 Oxycodone HCl (Oxycontin) 10 mg PO ONETIME [facility] Stop: 06/26/19 12:00 Last Admin: 06/26/19 06:26 Dose: 10 mg Pregabalin (Lyrica) 50 mg PO ONETIME [facility] Stop: 06/26/19 12:00 Last Admin: 06/26/19 06:26 Dose: 50 mg Propofol (Diprivan 20 Ml) Confirm Administered Dose 600 mg .ROUTE .STK-MED ONE Stop: 06/26/19 06:54 Ropivacaine (Naropin 0.5%) Confirm Administered Dose 30 ml .ROUTE .STK-MED ONE Stop: 06/26/19 06:50 Scopolamine (Transderm-Scop) 1.5 mg TOP ONETIME [facility] Stop: 06/26/19 12:00 Last Admin: 06/26/19 06:27 Dose: 1.5 mg Sodium Chloride (Saline Flush) 10 ml FLUSH ASDIRECTED PRN PRN Reason: Keep Vein Open Stop: 06/26/19 18:00 Tranexamic Acid (Cyklokapron) Confirm Administered Dose 1,000 mg .ROUTE .STK- MED ONE Stop: 06/26/19 06:14 Last Admin: 06/26/19 08:28 Dose: 1,000 mg Vancomycin HCl (Vancomycin) Confirm Administered Dose 1 gm .ROUTE .STK-MED ONE Stop: 06/26/19 06:15 Last Admin: 06/26/19 08:24 Dose: 1 gm
[2019-06-27] MEDS: Ketorolac 15 MG/ML SDV IVPUSH PRN (09:20)
[2019-06-27] MEDS: Famotidine 20 MG Tab PO SCH (09:21)
[2019-06-27] MEDS: Docusate Sodium 100 MG Cap PO SCH (09:21)
[2019-06-27 11:36] VITALS: BP 126/52; PULSE 52
--- NOTE | 2019-06-30 11:17 | PCM.OPNOTE ---
- General Post-Op/Procedure Note Date of Surgery/Procedure: 06/26/19 Operative Procedure(s): right total knee arthroplasty Pre Op Diagnosis: right knee osteoarthrosis Post-Op Diagnosis: Same Anesthesia Technique: Local, MAC, Spinal Primary Surgeon: Hema Medrano Anesthesia Provider: Radha Story Transmission Inspector: Elyse Lui Transmission Inspector: Brunilda Casas EBJoanne in mLs: 400 Complications: None Condition: Good Free Text/Narrative:: size 5 femur size 4 tibia 9mm 29x9
--- NOTE | 2019-06-30 11:44 | OR ---
DATE OF OPERATION: 06/26/2019 SURGEON: Hema Medrano MD OPERATION PERFORMED: Right total knee arthroplasty. PREOPERATIVE DIAGNOSIS: Right knee osteoarthrosis. POSTOPERATIVE DIAGNOSIS: Right knee osteoarthrosis. ANESTHESIA: Local MAC with spinal. ANESTHESIA PROVIDER: Candace Trammell. ASSISTANTS: Elyse Lui PA-C; and Brunilda Casas LPN. ESTIMATED BLOOD LOSS: 400 mL. COMPLICATIONS: None. CONDITION: Stable. IMPLANTS: 1. Mccarr size 5 press-fit CR femur. 2. Mirna size 4 press-fit tibial base plate. 3. Mirna size 4, 9 mm CS polyethylene insert. 4. Mirna size 29 x 9 mm press fit asymmetric patella. DESCRIPTION OF PROCEDURE: The patient was identified in the preop holding area. Proper site was marked and identified by the surgeon. The patient was taken back to the operating theater. After adequate anesthesia, the patient's right lower extremity had a nonsterile tourniquet applied and it was sterilely prepped and draped in the usual sterile fashion. OR time-out was performed. The patient received 2 g IV Ancef. At this time, the right lower extremity was exsanguinated. Tourniquet was insufflated to 300 mmHg. Standard medial parapatellar incision was made. Medial parapatellar arthrotomy was created. Deep fibers of the MCL were raised and anterior fat pad was resected. At this time, attention was turned to the patella. Patella measured a 21, it was resected to a 13 for a 29 x 9 mm patella. Drill holes were then drilled and found to be in adequate position. The drill was then drilled in the distal femur and the intramedullary distal femoral cutting guide was then placed. 8 mm was resected off the distal femur and was found to be an adequate resection. Sizing guide was placed. It was found to be a size 5 press-fit CR femur that was shown on the implant record at the beginning of this dictation. The drill holes were drilled for the epicondylar axis using [place] line and epicondyles as reference. At this time, the 4-in-1 cutting block was placed. An anterior posterior and anterior and posterior chamfer cuts were then completed. Attention was turned to the tibia. The posterior medial lateral retractors were placed. The extramedullary tibial guide was placed. It was placed in the old footprint of the ACL. It was aligned with the center of the ankle and 0 degrees of slope, 9 mm was then resected off the unaffected side. There was found to be an acceptable reduction. At this time, posterior osteophytes were removed along with medial and lateral meniscus. A trial implant was placed with a correct sized tibia that was mentioned at the beginning of the dictation. A Mirna size 4, 9 mm CS polyethylene insert was then placed. The patient's knee was brought through range of motion. The patella was tracking centrally and was stable to varus and valgus stress. Alignment was found to be roughly at 0 degrees. The tibia was stamped and drilled in proper rotation. The universal tibial base plate was impacted in place. Next, the Mirna size 5 press-fit CR femur impacted into place and the Mccarr size 4, 9 mm CS polyethylene insert was placed. The patient's knee was brought into full extension. The patella was then press-fit in place at this time. Tourniquet was deflated. One liter dilute Betadine solution was irrigated through the knee along with 3 L of pulse lavage irrigation with Ancef. Periarticular injection was then completed. The patient's knee was brought through a range of motion. Knee was found to be stable to varus valgus stress, the patella was tracking centrally with full range of motion. At this time, a #2 barbed suture was used for closure of the medial parapatellar arthrotomy. Topical tranexamic acid was placed. 2-0 Vicryl was used subcutaneously, Prineo was used for the skin. The patient tolerated the procedure well and was sent to the PACU in stable condition. ANNEL /[id number] KIRAN
== END 2019-06-27 12:45 | disposition home or self-care (01) | DRG 302 ==
LOC: JD.MS 06:07 → EDSTATUS 08:00
PROVIDERS: ADMIT Orthopaedic Surgery; ATTEND Orthopaedic Surgery
PROC: 0SRC0JA Replacement of Right Knee Joint with Synthetic Substitute, Uncemented, Open Approach (ICD-10-PCS; principal; 2019-06-26)
PROC: 3E02340 Introduction of Influenza Vaccine into Muscle, Percutaneous Approach (ICD-10-PCS; 2019-06-27)
DX: M17.11 Unilateral primary osteoarthritis, right knee (principal); H54.7 Unspecified visual loss; E78.00 Pure hypercholesterolemia, unspecified; E78.5 Hyperlipidemia, unspecified; I10 Essential (primary) hypertension; R60.0 Localized edema; R05 Cough; Z96.652 Presence of left artificial knee joint; Z87.891 Personal history of nicotine dependence; Z79.899 Other long term (current) drug therapy; Z90.49 Acquired absence of other specified parts of digestive tract; Z90.89 Acquired absence of other organs; Z90.710 Acquired absence of both cervix and uterus; Z23 Encounter for immunization; Z79.82 Long term (current) use of aspirin
CPT/HCPCS: 01402; 36415; 64450; 73560-26-RT; 73560-RT; 80053; 85027; 87641; 90686; 94640; 94760; 97110-GP; 97116-GP; 97161-GP; 97165-GO; 97535-GO; A9270-GY; C1776; G0008; J0171; J0690; J0697; J1100; J1200; J1885; J2001; J2250; J2270; J2405; J2704; J2795; J3010; J3370; J3490; J7120

== ENCOUNTER 2021-02-27 06:07 | Day surgery (SDC) | payer BC, OTHER ==
[~2021-02-27 06:07] MED LIST changes: -Acetaminophen 325 MG Tab PO SCH; -Pregabalin 25 MG Cap PO SCH; -Scopolamine 1.5 MG Transdermal Patch TOP SCH; -oxyCODONE ER 10 MG TAB.ER PO SCH
[2021-02-27] MEDS ORDERED: Scopolamine 1.5 MG Transdermal Patch TOP SCH (06:30)
[2021-02-27] MEDS: Bupivacaine 0.25% 10 ML SDV ONE ×2 (06:39→07:15)
--- NOTE | 2021-02-27 06:39 | PCM.PREANE ---
Preanesthetic Assessment - Anesthesia/Transfusion/Family Hx Anesthesia History: Prior Anesthesia Reaction (LAYNE) Family History of Anesthesia Reaction: No Transfusion History: No Prior Transfusion(s) - Review of Systems General: No Symptoms Pulmonary: No Symptoms Cardiovascular: No Symptoms Gastrointestinal: No Symptoms Neurological: No Symptoms Other: Reports: None - Physical Assessment NPO Status Date: 02/26/21 NPO Status Time: 22:00 ASA Class: 2 Mental Status: Alert & Oriented x3 Airway Class: Mallampati = 2 Dentition: Reports: Normal Dentition Thyro-Mental Finger Breadths: 3 Mouth Opening Finger Breadths: 3 ROM/Head Extension: Full Lungs: Clear to Auscultation, Normal Respiratory Effort Cardiovascular: Regular Rate, Regular Rhythm - Allergies Allergies/Adverse Reactions: Allergies Allergy/AdvReac Type Severity Reaction Status Date / Time No Known Allergies Allergy Verified 02/27/21 06:19 - Acknowledgements Anesthesia Type Planned: MAC Pt an Appropriate Candidate for the Planned Anesthesia: Yes Alternatives and Risks of Anesthesia Discussed w Pt/Guardian: Yes Pt/Guardian Understands and Agrees with Anesthesia Plan: Yes PreAnesthesia Questionnaire HEENT History: Reports: Impaired Vision Other HEENT History: wears glasses Cardiovascular History: Reports: High Cholesterol, Hypertension, Other (See Below) Other Cardiovascular History: Peripheral edema Respiratory History: Reports: None Other Respiratory History: Upper respiratory infection Gastrointestinal History: Reports: None Genitourinary History: Reports: None DATA SECURITY ANALYST History: Reports: None Musculoskeletal History: Reports: Osteoarthritis Other Musculoskeletal History: Bilateral knee pain Neurological History: Reports: None Psychiatric History: Reports: None Endocrine/Metabolic History: Reports: None Hematologic History: Reports: None Immunologic History: Reports: None Oncologic (Cancer) History: Reports: None Dermatologic History: Other Dermatologic History: Acne - Past Surgical History Head Surgeries/Procedures: Reports: None HEENT Surgical History: Reports: Tonsillectomy Cardiovascular Surgical History: Reports: None Respiratory Surgical History: Reports: None GI Surgical History: Reports: Cholecystectomy, EGD Female Surgical History: Reports: Hysterectomy Other Female Surgeries/Procedures: partial hysterectomy Endocrine Surgical History: Reports: None Neurological Surgical History: Reports: None Musculoskeletal Surgical History: Reports: Carpal Tunnel, Knee Replacement, Other (See Below) Other Musculoskeletal Surgeries/Procedures:: Right carpal tunnel release, Right rotator cuff repair, left total knee Oncologic Surgical History: Reports: None Dermatological Surgical History: Reports: None - SUBSTANCE USE Tobacco Use Status *Q: Former Tobacco User - HOME MEDS Home Medications: Home Meds Calcium Carbonate/Vitamin D3 [Calcium 600Mg-D3 400 Unit Sfgl] 1 cap PO DAILY 07/22/16 [History] Multivitamin [Multivitamins] 1 cap PO DAILY 07/22/16 [History] Betamethasone/Clotrimazole [Lotrisone] 1 applic TOP ASDIRECTED 12/09/18 [History] Fluticasone Propionate [Flonase] 1 spray NS DAILY 12/09/18 [History] Spironolactone 50 mg PO DAILY 12/09/18 [History] amLODIPine Besylate [Norvasc] 5 mg PO DAILY 12/09/18 [History] hydroCHLOROthiazide [Microzide] 12.5 mg PO DAILY 12/09/18 [History] Albuterol [Ventolin HFA] 2 puff INH Q4H PRN 06/25/19 [History] Biotin [Biotin-D] 1 gm PO DAILY 06/25/19 [History] Cholecalciferol (Vitamin D3) [Vitamin D3] 1,000 unit PO DAILY 06/25/19 [History] - CURRENT (IN HOUSE) MEDS Current Meds: Current Medications Lactated Ringer's (Ringers, Lactated) 1,000 mls @ 125 mls/hr IV ASDIRECTED [facility] Stop: 02/27/21 23:00 Lidocaine/Sodium Bicarbonate (Lidocaine 1%/Sod Bicarbonate In Ns 8.4% 1 Ml Syringe) 0.25 ml IDERM ONETIME PRN PRN Reason: Prior to IV Start Stop: 02/27/21 18:00 Scopolamine (Scopolamine 1.5 Mg Transdermal Patch) 1.5 mg TOP ONETIME [facility] Sodium Chloride (Sodium Chloride 0.9% 10 Ml Syringe) 10 ml FLUSH ASDIRECTED PRN PRN Reason: Keep Vein Open Stop: 02/27/21 18:00 Discontinued Medications Bupivacaine HCl (Bupivacaine 0.25% 10 Ml Sdv) Confirm Administered Dose 10 ml .ROUTE .STK-MED ONE Stop: 02/27/21 06:20 Lidocaine HCl (Lidocaine 1% 30 Ml Sdv) Confirm Administered Dose 30 ml .ROUTE .STK-MED ONE Stop: 02/27/21 06:21
[2021-02-27] MEDS: Lidocaine 1% 30 ML SDV ONE ×2 (06:40→07:15)
[2021-02-27] MEDS ORDERED: ceFAZolin 1 GM Vial ONE (06:44)
[2021-02-27] MEDS ORDERED: Midazolam 1 MG/ML 2 ML SDV ONE (06:44)
[2021-02-27] MEDS ORDERED: Lidocaine 1% 4 ML ONE (06:44)
[2021-02-27] MEDS ORDERED: Propofol 200 MG/20 ML SDV ONE (06:44)
[2021-02-27] MEDS ORDERED: fentaNYL 100 MCG/2 ML SDV ONE (06:45)
[2021-02-27] MEDS ORDERED: Ondansetron 4 MG/2 ML SDV ONE (07:08)
[2021-02-27] MEDS ORDERED: Ketorolac 30 MG/ML SDV ONE (07:08)
--- NOTE | 2021-02-27 07:29 | PCM.OPNOTE ---
- General Post-Op/Procedure Note Date of Surgery/Procedure: 02/27/21 Operative Procedure(s): left carpal tunnel release Pre Op Diagnosis: left median nerve compression neuropathy Post-Op Diagnosis: Same Anesthesia Technique: Local, MAC Primary Surgeon: Hema Medrano Anesthesia Provider: Hillary Mei Religious Education Coordinator: Elyse Lui EBL in mLs: 5 Complications: None Condition: Good
--- NOTE | 2021-02-27 07:37 | PCM48HPAN ---
Post Anesthesia Note - EVALUATION WITHIN 48HRS OF ANESTHETIC Vital Signs in Normal Range: Yes Patient Participated in Evaluation: Yes Respiratory Function Stable: Yes Airway Patent: Yes Cardiovascular Function Stable: Yes Hydration Status Stable: Yes Pain Control Satisfactory: Yes Nausea and Vomiting Control Satisfactory: Yes Mental Status Recovered: Yes Vital Signs: Last Vital Signs Temp 36.2 C 02/27/21 06:58 Pulse 80 02/27/21 06:58 Resp 16 02/27/21 06:58 BP 151/65 H 02/27/21 06:58 Pulse Ox 96 02/27/21 06:58
[2021-02-27 08:00] VITALS: BP 113/55; PULSE 79
--- NOTE | 2021-02-27 08:10 | OR ---
DATE OF OPERATION: 02/27/2021 SURGEON: Hema Medrano MD OPERATION PERFORMED: Left carpal tunnel release. PREOPERATIVE DIAGNOSIS: Left median nerve compression neuropathy. POSTOPERATIVE DIAGNOSIS: Left median nerve compression neuropathy. ANESTHESIA: Local MAC. ANESTHESIA PROVIDER: Hillary Mei CRNA [employer] CONVERTER: Elyse Lui PA-C ESTIMATED BLOOD LOSS: Less than 5 mL. COMPLICATIONS: None. CONDITION: Stable. DESCRIPTION OF PROCEDURE: The patient was identified in the preop holding area. Proper site was marked and identified by the surgeon. The patient was taken back to the operating theater where after adequate anesthesia, the patient's left upper extremity was sterilely prepped and draped in the usual sterile fashion. OR time-out was performed. The patient did not receive antibiotics and it is not indicated for soft tissue hand procedure. At this time, the left upper extremity was exsanguinated and an Esmarch was used as a tourniquet on the forearm. At this time, using 1% lidocaine without epinephrine and 0.25% Marcaine without epinephrine, the palmar cutaneous branch of the median nerve was anesthetized and then the incisional site was anesthetized using [place] cardinal line and ulnar border of the fourth digit as reference. Once this had set up, an incision was made. Blunt dissection was taken down to the palmar cutaneous fascia. Palmar cutaneous fascia was incised with a [place] blade. At this time, the transverse carpal ligament was identified. A small rent was made in the transverse carpal ligament with a [place] blade under direct visualization. Resection of the transverse carpal ligament was done distally using tenotomy scissors making sure to stop short of the palmar arch. At this time, attention was turned proximally after it was found to be adequately released. Using the tenotomy scissors keeping the tips ulnar to protect the palmar cutaneous branch of the median nerve, the superficial forearm fascia as well as the transverse carpal ligament were resected proximally. It was found to be adequate release both proximally and distally. At this time, adequate saline was irrigated through the wound. 4-0 nylon sutures were used closure of the skin. The patient was placed in a sterile soft dressing and sent to PACU in stable condition. MMODAL /[id number]
== END 2021-02-27 08:01 | disposition home or self-care (01) ==
LOC: JD.SDS 06:07
PROVIDERS: ATTEND Orthopaedic Surgery
DX: G56.02 Carpal tunnel syndrome, left upper limb (principal); I10 Essential (primary) hypertension; E78.00 Pure hypercholesterolemia, unspecified; M19.90 Unspecified osteoarthritis, unspecified site; Z87.891 Personal history of nicotine dependence
CPT/HCPCS: 64721; A9270; J0690; J1885; J2250; J2405; J2704; J3010; J3490; J7120; 01810